=== PATIENT | male | born 1975 | race Caucasian/White ===

== ENCOUNTER 2018-06-09 17:35 | Inpatient (IN) ==
[~2018-06-09 17:35] MED LIST: 0.9 % Sodium Chloride 1,000 ML ONE; Ipratropium/Albuterol Neb 3 ML ONE; methylPREDNISolone 125 MG/2 ML VIAL ONE
--- NOTE | 2018-06-09 20:54 | Internal Med History&Physical ---
<Brett Dan - Last Filed: 06/09/18 23:00> Date of Encounter: 06/09/18 Time of Encounter: 20:53 ( ) Internal Medicine - H&P: HPI Chief complaint: SOB, cough Admitted From: Emergency Dept History of present illness: Mr. Casper is a 42 year old male who was a transfer from [place] emergency department with concern for multilobar pneumonia. Patient states that he has been having shortness of breath and cough for the last 2 weeks. He reports green sputum production. States it is worse when lying flat. He also reports smoking since the age of 6. Not on any oxygen at home. Was found to have a multilobar pneumonia on CT angiogram of the chest. Patient was given 1 L of fluids there. He was given Solu-Medrol, breathing treatments, and required 4 L of oxygen via nasal cannula. Troponin was mildly elevated at 0.05 initially. Patient had a leukocytosis of 15.8. He was given Rocephin and azithromycin. Patient denied any fevers, chest pain, abdominal pain, nausea, vomiting, lower extremity edema. Past Med Surg Social Fam HX - Past Medical History Medical history: COPD, seizures Psychiatric history: no psych history - Past Surgical History Surgical History: herniorrhaphy - Social History Smoking Status: Current every day smoker Smokeless Tobacco Status: Yes Alcohol use: none Drug use: none Internal Medicine - H&P: Meds carBAMazepine [Tegretol] 800 mg PO HS 12/11/15 [History] Albuterol Neb [AccuNeb] 1.25 mg IH 1-2XD PRN MDD 2 06/09/18 [History] Allergy/AdvReac Type Severity Reaction Status Date / Time Amoxicillin Allergy Swelling Verified 08/17/16 23:15 of Lip/Tongue/Throat ampicillin Allergy Swelling Verified 08/17/16 23:15 of Lip/Tongue/Throat Bee Pollen Allergy Swelling Verified 08/17/16 23:15 of Lip/Tongue/Throat Penicillins [PCN] Allergy Swelling Verified 08/17/16 23:15 of Lip/Tongue/Throat All Systems PM: A 10-system review of systems was performed and is negative for pertinent findings except as documented above in the HPI. - Constitutional Vitals: Temp Pulse Resp BP Pulse Ox 99.6 F 84 19 145/107 92 06/09/18 19:15 06/09/18 19:27 06/09/18 19:27 06/09/18 19:15 06/09/18 19:27 General appearance: Present: A&O X 3, pleasant, no acute distress Exam: General: Well Appearing, in no acute distress Head: autraumatic, EOMI, no conjuncitval pallor, no scleral icterus, Neck: neck soft, trachea midline Chest:: Equal chest wall rise Lungs: Mild rhonchi bilaterally, no wheezes, 4 L oxygen via nasal cannula Heart: normal heart sounds, normal rhythm, Abdomen: soft, non-tender, no rigidity, no guarding, no rebdound tenderness Extremities: No pitting edema Integumentary: Skin warm, dry, and intact Neuro: Alert Psych: normal affect, normal mood - Assessment and plan (1) Pneumonia Current Visit: Yes Status: Acute Assessment and plan: Patient with multilobar pneumonia on CT angiogram. Has received one dose of Rocephin and azithromycin. Currently was also given steroids and DuoNeb's in the emergency department. Had an elevated troponin 0.05. Repeat troponin was less than 0.03. EKG did not reveal any ischemic ST changes. Patient does not have any chest pain at this time. Flu swab was negative. Requiring oxygen via nasal cannula at 4 L to keep oxygen saturation at 90%. -DuoNeb's every 4 hours scheduled for pulmonary toilet -Continue azithromycin and Rocephin -Prednisone 40 mg daily -Titrate oxygen via nasal cannula to 92%, patient will most likely qualify for home oxygen -Patient received 325 mg of aspirin with concern for elevated troponin. We will not start any heparin at this time as suspicion for ACS is low. - Repeat troponin at 4 AM -Will obtain an echocardiogram as well -DVT prophylaxis with heparin 5000 every 8 hours - Qualifiers: Pneumonia type: due to unspecified organism Laterality: bilateral Lung location: unspecified part of lung Qualified Code(s): J18.9 - Pneumonia, unspecified organism (2) Acute respiratory failure Current Visit: Yes Status: Acute Assessment and plan: See above Qualifiers: Respiratory failure complication: hypoxia and hypercapnia Qualified Code(s): J96.01 - Acute respiratory failure with hypoxia; J96.02 - Acute resp iratory failure with hypercapnia (3) Elevated troponin I level Current Visit: Yes Status: Acute Assessment and plan: See above (4) Tobacco abuse Current Visit: Yes Status: Acute Assessment and plan: -Nicotine patches -Recommend counseling for tobacco cessation (5) COPD exacerbation Current Visit: Yes Status: Acute Assessment and plan: See above (6) DVT prophylaxis Current Visit: Yes Status: Acute Assessment and plan: See above (7) Full code status Current Visit: Yes Status: Acute - Time Spent With Patient Total time spent is greater than 50% in coordination of care (as documented) at patient's floor/unit and/or counseling patient: <Robert Israel Kym - Last Filed: 06/10/18 03:57> Date of Encounter: 06/09/18 Internal Medicine - H&P: HPI History of present illness: Mr. Casper is a 42 year old male All Systems PM: A 10-system review of systems was performed and is negative for pertinent findings except as documented above in the HPI. - Constitutional Vitals: Temp Pulse Resp BP Pulse Ox 98.3 F 88 20 160/108 94 06/10/18 03:27 06/10/18 03:27 06/10/18 03:27 06/10/18 03:27 06/10/18 03:27 Internal Med - H&P Results - Labs Labs: Cardiac Enzymes 06/09/18 Range/Units 21:29 Troponin I < 0.03 (< 0.04) ng/mL - Time Spent With Patient Total time spent is greater than 50% in coordination of care (as documented) at patient's floor/unit and/or counseling patient: - Attending Attestation I saw and evaluated the patient. I reviewed the residents note, performed my own physical examination and agree with findings and plan as documented in the residents note. Patient seen and examined on 06/09/18. Patient has multifocal pneumonia, history of seizures and hypoxia. He also has likely COPD exacerbation. Patient's INR also elevated at 1.5 the troponin of 0.05 as well. EKG did not demonstrate ischemic changes, patient denies chest pain. Upon arrival he was given nicotine patch, breathing treatments, and supplemental oxygen. We will continue his IV antibiotics, repeat labs in the morning, obtain cardiac echo in the morning as well as check an A1c. Patient's blood glucose was slightly elevated, but patient denies history of diabetes. I asked patient about family history of medical problems, he indicates that his uncle on his father's side of the family had seizures as well as his cousin, but he denies history of heart problems, diabetes and other medical problems including cancer in his mother and father side of the family. Patient states that he is feeling better since arrival.
[2018-06-09] MEDS ORDERED: Aspirin 325 MG TABLET PO ONE (21:34)
[2018-06-09] MEDS: Nicotine 14 MG PATCH.TD24 TD SCH (22:49)
[2018-06-09] MEDS: 0.9 % Sodium Chloride 1,000 ML IVC SCH (22:50)
[2018-06-09] MEDS: Ipratropium/Albuterol Neb 3 ML IH SCH (23:08)
[2018-06-09] MEDS ORDERED: Acetaminophen 325 MG TABLET PO PRN (23:37)
[2018-06-10] MEDS ORDERED: Acetaminophen 325 MG TABLET PO SCH
[2018-06-10] MEDS: carBAMazepine 200 MG TABLET PO SCH ×2 (00:27→22:10)
[2018-06-10] MEDS: Ipratropium/Albuterol Neb 3 ML IH SCH ×5 (03:43→20:45)
[2018-06-10] MEDS: *HR* Heparin 5,000 UNIT/ML VIAL SQ SCH ×3 (05:27→22:09)
[2018-06-10] MEDS ORDERED: CarBAMazepine XR (12 hr) 100 MG TAB PO SCH (06:00)
[2018-06-10 06:18] LABS: Hematocrit 47.3 % (37.5-50.1); Mean Corpuscular HGB Conc 31.7 g/dL (31.6-35.5); Mean Corpuscular Hemoglobin 33.1 pg (28.0-33.3); Mean Corpuscular Volume 104.4 fL (83.0-100.0); Mean Platelet Volume 10.7 fL (9.4-12.4); Nucleated Red Blood Cells 0.2 /100 WBC (0); Platelet Count 249 K/mcL (140-400); Red Blood Count 4.53 M/mcL (4.19-5.50)
[2018-06-10 06:27] LABS: INR 1.4; Prothrombin Time 15.7 Seconds (9.4-12.1)
[2018-06-10 06:35] LABS: BUN/Creatinine Ratio 17 (6-26); Blood Urea Nitrogen 9 mg/dL (6-20); Carbon Dioxide 36 mEq/L (23-29); Chloride 100 mEq/L (98-107); Glucose 102 mg/dL (70-105); Osmolality,Calculated 289 (280-300); Potassium 4.1 mEq/L (3.5-5.1); Sodium 140 mEq/L (136-145); eGFR For Non-African Americans > 60 (> 60)
[2018-06-10 06:37] LABS: Chol/HDL Ratio 7.2 (0-4.9)
[2018-06-10 06:43] LABS: Lymphocytes # 2.3 K/mcL (0.6-4.6); Monocytes # 0.5 K/mcL (0.0-1.3); Neutrophils # 10.1 K/mcL (1.6-8.9); Platelet Estimate Normal (Normal); Reactive Lymphocytes Present (Not Present); Smudge Cells Present (Not Present)
[2018-06-10] MEDS: 0.9 % Sodium Chloride 1,000 ML IVC SCH ×2 (07:02→16:28)
[2018-06-10] MEDS: cefTRIAXone 1,000 MG in Water for inj. (sterile) 20 ML 10 ML IVP SCH (08:00)
[2018-06-10] MEDS: predniSONE 20 MG TABLET PO SCH (08:00)
--- NOTE | 2018-06-10 09:44 | Internal Med Progress Note ---
Hospitalist Progress Note - Encounter Date of Encounter: 06/10/18 Time of Encounter: 09:27 - Subjective Interval History: Patient seen and examined this morning at bedside. Breathing improving. Denies any chest pain. Denies any nausea vomiting. Denies any abdominal pain bowel or urinary complaints. - Exam Vitals: Temp Pulse Resp BP Pulse Ox 98.3 F 89 20 142/107 90 06/10/18 07:26 06/10/18 07:26 06/10/18 07:26 06/10/18 07:26 06/10/18 07:26 Exam: General: In no acute distress. Conversant. Obese. Respiratory exam: Bilateral rhonchi and rales. no accessory muscle use Cardiovascular exam: RRR, +S1, +S2. no murmur, gallop, rubs. GI/Abdominal exam: Non-tender, Non-distended, normal bowel sounds, soft, no peritoneal signs. Extremities exam: full ROM, no pedal edema, warm, pulses palpable in b/l lower extremities. no calf tenderness Neurological exam: CN II-XII intact, AO X3, no focal deficits. no pronater drift, facial droop, speech deficit Skin exam: skin pigmentation on back. - Summary of Assessment and Plan Summary of Assessment and Plan: Multilobar Pneumonia - On CTA. - c/w Rocephin and azithromycin. duonebs - Flu swab was negative. Obtain respiratory infectious panel, urine legionella and streptococcal antigen - c/w supplemental oxgyen. Acute respiratory failure - likely related to pneumonia on baseline COPD - c/w supplemental oxygen Elevated troponin I level - Remain flat. 0.05> less than 0.03 - EKG without ischemic changes - denies chest pain. - f/u ECHO - s/p aspirin COPD exacerbation - c/w prednisone, ceftrixone, azithromycin and duonebs Elevated glucose - f/u A1c Tobacco abuse - c/w Nicotine patches Seizure history - c/w home carbamezepine DVT prophylaxis - on heparin - Time Spent with Patient Total time spent is greater than 50% in coordination of care (as documented) at patient's floor/unit and/or counseling patient: Internal Medicine: Result - Labs CBC & Chem 7: 06/10/18 05:39 06/10/18 05:39 Labs: Short CBC 06/10/18 Range/Units 05:39 WBC 13.0 H (4.3-11.1) K/mcL Hgb 15.0 (12.9-16.9) g/dL Hct 47.3 (37.5-50.1) % Plt Count 249 (140-400) K/mcL Neutrophils # 10.1 H (1.6-8.9) K/mcL BMP 06/10/18 05:39 Sodium 140 Potassium 4.1 Chloride 100 Carbon Dioxide 36 H BUN 9 Creatinine 0.53 L Glucose 102 Calcium 9.0 Cardiac Enzymes 06/09/18 06/10/18 Range/Units 21:29 05:39 Troponin I < 0.03 < 0.03 (< 0.04) ng/mL - ABG Interpretation ABG results: PT/INR, D-dimer PT 15.7 Seconds (9.4-12.1) H 06/10/18 05:39 Consult Discharge Plan - Plan Referrals: NONE,PCP [Primary Care Provider] -
[2018-06-10 11:50] LABS: Adenovirus Not Detected (Not Detect); Bordetella Pertussis Not Detected (Not Detect); Chlamydophila pneumoniae Not Detected (Not Detect); Coronavirus 229E Not Detected (Not Detect); Coronavirus HKU1 Not Detected (Not Detect); Coronavirus NL63 Not Detected (Not Detect); Coronavirus OC43 Not Detected (Not Detect); Human Metapneumovirus Not Detected (Not Detect); Human Rhinovirus/Enterovirus DETECTED (Not Detect); Influenza A Subtype 2009 H1 Not Detected (Not Detect); Influenza A Untypeable Not Detected (Not Detect); Influenza B Not Detected (Not Detect); Mycoplasma pneumoniae Not Detected (Not Detect); Parainfluenza Virus 1 Not Detected (Not Detect); Parainfluenza Virus 2 Not Detected (Not Detect); Parainfluenza Virus 3 Not Detected (Not Detect); Parainfluenza Virus 4 Not Detected (Not Detect); Respiratory Syncytial Virus Not Detected (Not Detect)
[2018-06-10 12:56] LABS: Estimated Average Glucose 169 mg/dl; Hemoglobin A1C 7.5 %
[2018-06-10] MEDS ORDERED: Perflutren Lipid Microsphere 1.3 ML in 0.9 % Sodium Chloride 8.7 ML IVP ONE (13:34)
[2018-06-10] MEDS ORDERED: Azithromycin 500 MG in D5% in Water 250 ML IVPB SCH (16:00)
[2018-06-10] MEDS: Nicotine 14 MG PATCH.TD24 TD SCH (22:09)
[2018-06-11] MEDS: Ipratropium/Albuterol Neb 3 ML IH SCH ×7 (00:50→23:57)
[2018-06-11] MEDS: 0.9 % Sodium Chloride 1,000 ML IVC SCH ×2 (01:07→09:13)
[2018-06-11] MEDS: *HR* Heparin 5,000 UNIT/ML VIAL SQ SCH ×3 (05:54→19:58)
[2018-06-11 08:03] LABS: Sodium 141 mEq/L (136-145)
[2018-06-11 08:04] LABS: BUN/Creatinine Ratio 16 (6-26); Blood Urea Nitrogen 11 mg/dL (6-20); Calcium 8.7 mg/dL (8.6-10.3); Carbon Dioxide 35 mEq/L (23-29); Chloride 101 mEq/L (98-107); Glucose 102 mg/dL (70-105); Osmolality,Calculated 292 (280-300); Potassium 4.1 mEq/L (3.5-5.1); eGFR For Non-African Americans > 60 (> 60)
[2018-06-11 08:22] LABS: Basophils % 0.4 %; Eosinophils # 0.3 K/mcL (0.0-0.6); Eosinophils % 2.5 %; Hematocrit 47.9 % (37.5-50.1); Hemoglobin 14.7 g/dL (12.9-16.9); Immature Granulocytes % 1.2 % (0-4); Lymphocytes # 2.7 K/mcL (0.6-4.6); Lymphocytes % 24.1 %; Mean Corpuscular HGB Conc 30.7 g/dL (31.6-35.5); Mean Corpuscular Hemoglobin 33.1 pg (28.0-33.3); Mean Corpuscular Volume 107.9 fL (83.0-100.0); Mean Platelet Volume 11.1 fL (9.4-12.4); Monocytes # 0.6 K/mcL (0.0-1.3); Monocytes % 5.1 %; Neutrophils # 7.5 K/mcL (1.6-8.9); Platelet Count 251 K/mcL (140-400); Red Blood Count 4.44 M/mcL (4.19-5.50); Red Cell Distribution Width 12.8 % (11.5-14.5); Segmented Neutrophils % 66.7 %
--- NOTE | 2018-06-11 08:48 | Internal Med Progress Note ---
Hospitalist Progress Note - Encounter Date of Encounter: 06/11/18 Time of Encounter: 08:47 - Subjective Interval History: Patient seen and examined this morning at bedside. No acute overnight events. Breathing slightly improved. Complains of difficulty sleeping tablets being going on for a while urine before admissions. Denies any fevers chills nausea vomiting urinary or bowel complaints. - Exam Vitals: Temp Pulse Resp BP Pulse Ox 98.1 F 58 18 138/104 95 06/11/18 07:34 06/11/18 07:34 06/11/18 07:34 06/11/18 07:34 06/11/18 07:34 Exam: General: In no acute distress. Conversant. Respiratory exam: Bilateral rhonchi and rales. aeration improved. no accessory muscle use Cardiovascular exam: RRR, +S1, +S2. no murmur, gallop, rubs. GI/Abdominal exam: Non-tender, Non-distended, normal bowel sounds, soft, no peritoneal signs. Extremities exam: full ROM, no pedal edema, warm, pulses palpable in b/l lower extremities. no calf tenderness Neurological exam: CN II-XII intact, AO X3, no focal deficits. no pronater drift, facial droop, speech deficit Skin exam: skin pigmentation on back. - Summary of Assessment and Plan Summary of Assessment and Plan: Multilobar Pneumonia - On CTA. - Urine antigen positive for streptococcus. entero/Rhino virus positive. - c/w Rocephin and duonebs - urine legionella negative. azithromycin stopped. - c/w supplemental oxgyen. Acute respiratory failure - likely related to pneumonia on baseline COPD - c/w supplemental oxygen Elevated troponin I level - Remain flat. 0.05> less than 0.03 - EKG without ischemic changes - denies chest pain. - ECHO with EF 55-60%, no wall motion abnormality COPD exacerbation - c/w prednisone, ceftrixone and duonebs Elevated glucose - A1c at 7.5 - Will start on metformin on discharge. Tobacco abuse - c/w Nicotine patches Seizure history - c/w home carbamezepine DVT prophylaxis - on heparin Can be transferred out to regular floor. get o2 qualification. - Time Spent with Patient Total time spent is greater than 50% in coordination of care (as documented) at patient's floor/unit and/or counseling patient: Internal Medicine: Result - Labs CBC & Chem 7: 06/11/18 07:16 06/11/18 07:16 Labs: Short CBC 06/11/18 Range/Units 07:16 WBC 11.2 H (4.3-11.1) K/mcL Hgb 14.7 (12.9-16.9) g/dL Hct 47.9 (37.5-50.1) % Plt Count 251 (140-400) K/mcL BMP 06/11/18 07:16 Sodium 141 Potassium 4.1 Chloride 101 Carbon Dioxide 35 H BUN 11 Creatinine 0.68 L Glucose 102 Calcium 8.7 - ABG Interpretation ABG results: PT/INR, D-dimer PT 15.7 Seconds (9.4-12.1) H 06/10/18 05:39 - Impressions Impressions Echocardiogram 06/09/18 21:30 Impressions: Technically sub-optimal. LVEF grossly 55-60%. Mild left ventricular diastolic dysfunction. Grossly normal right ventricular structure and function. No significant valvular dysfunction. Unable to estimate RVSP due to lack of TR jet. Left Ventricular Wall Motion: Rest Echo Findings All wall segments showed normal motion. Findings: Study Quality * Technically sub-optimal due to poor echocardiographic windows. ECG Findings * Sinus rhythm with BBB. Left Ventricle * LVEF 55-60%. * Normal LV chamber size, wall thickness and systolic function. * Mild left ventricular diastolic dysfunction. * Atypical septal motion consistent with bundle branch block. Right Ventricle * RV not well visualized, grossly normal right ventricular structure and function. Left Atrium * Normal left atrial size. Right Atrium * RA not well visualized, grossly normal right atrial size. Interatrial Septum * Interatrial septum not well evaluated. Aortic Valve * Aortic valve not well visualized. * No aortic stenosis. * No aortic regurgitation. Mitral Valve * Mitral valve not well visualized. * No mitral stenosis. * No mitral regurgitation. Tricuspid Valve * Tricuspid valve not well visualized. * No tricuspid stenosis. * Trace tricuspid regurgitation. * Unable to estimate RVSP due to lack of TR jet. Pulmonic Valve * Pulmonic valve is not well visualized. * No pulmonic stenosis. * No pulmonic regurgitation. Aorta * Normally sized aortic root. Pericardium * The pericardium appears normal. IVC * The IVC is not well evaluated. Consult Discharge Plan - Plan Referrals: NONE,PCP [Primary Care Provider] -
[2018-06-11 08:50] LABS: Platelet Estimate Normal (Normal)
[2018-06-11] MEDS: cefTRIAXone 1,000 MG in Water for inj. (sterile) 20 ML 10 ML IVP SCH (09:13)
[2018-06-11] MEDS: predniSONE 20 MG TABLET PO SCH (09:13)
[2018-06-11] MEDS: carBAMazepine 200 MG TABLET PO SCH (19:43)
[2018-06-11] MEDS: Nicotine 14 MG PATCH.TD24 TD SCH (19:44)
[2018-06-12] MEDS: Ipratropium/Albuterol Neb 3 ML IH SCH ×5 (03:49→20:20)
[2018-06-12 05:16] LABS: Basophils % 0.4 %; Eosinophils # 0.3 K/mcL (0.0-0.6); Eosinophils % 2.7 %; Hematocrit 47.6 % (37.5-50.1); Immature Granulocytes % 1.5 % (0-4); Lymphocytes # 2.6 K/mcL (0.6-4.6); Lymphocytes % 26.4 %; Mean Corpuscular HGB Conc 31.5 g/dL (31.6-35.5); Mean Corpuscular Hemoglobin 33.2 pg (28.0-33.3); Mean Corpuscular Volume 105.3 fL (83.0-100.0); Monocytes # 0.5 K/mcL (0.0-1.3); Monocytes % 4.6 %; Neutrophils # 6.3 K/mcL (1.6-8.9); Platelet Count 276 K/mcL (140-400); Red Blood Count 4.52 M/mcL (4.19-5.50); Red Cell Distribution Width 12.5 % (11.5-14.5); Segmented Neutrophils % 64.4 %
[2018-06-12 05:34] LABS: BUN/Creatinine Ratio 19 (6-26); Blood Urea Nitrogen 11 mg/dL (6-20); Calcium 8.7 mg/dL (8.6-10.3); Carbon Dioxide 32 mEq/L (23-29); Chloride 103 mEq/L (98-107); Glucose 101 mg/dL (70-105); Osmolality,Calculated 286 (280-300); Potassium 4.2 mEq/L (3.5-5.1); Sodium 138 mEq/L (136-145); eGFR For Non-African Americans > 60 (> 60)
[2018-06-12] MEDS: *HR* Heparin 5,000 UNIT/ML VIAL SQ SCH ×3 (05:58→22:08)
[2018-06-12] MEDS: cefTRIAXone 1,000 MG in Water for inj. (sterile) 20 ML 10 ML IVP SCH (07:51)
[2018-06-12] MEDS: predniSONE 20 MG TABLET PO SCH (07:51)
[2018-06-12] MEDS: Lisinopril 20 MG TABLET PO SCH (08:54)
--- NOTE | 2018-06-12 09:34 | Event Note ---
Date of Encounter: 06/12/18 Time of Encounter: 09:29 Patient was seen and examined. I agree with the progress note as written by the resident physician. Patient remains on about 4 L O2. Not usually on home O2. Feeling better. Admitted with mulitlobar PNA, COPD exacerbation. Urine antigen + for strep. Resp panel + for entero/rhino virus. GEN: NAD CVS: RRR. S1, S2, No m/r/g RESP: Scattered rhonchi ABD: Soft, NT, ND, +BS EXT: No edema. 2+ DP. No rashes NEURO: Nonfocal Continue IV ceftriaxone. Continue oral prednisone as this today and taper at discharge Continue nebs Try to wean oxygen off today. Possibly O2 evaluation tomorrow Continue rest of home medications. Heparin subcutaneous
--- NOTE | 2018-06-12 16:10 | Internal Med Progress Note ---
Hospitalist Progress Note - Encounter Date of Encounter: 06/12/18 Time of Encounter: 10:14 - Subjective Interval History: Patient sitting comfortably at the edge of the bed after finishing breathing treatment. States that he is feeling much better today. Continues to have mild cough but much improved. Some sputum production with yellowish mucus, however also improved. Denies shortness of breath, chest pain, lightheadedness, dizziness, nausea, vomiting, fevers, or chills. - Exam Vitals: Temp Pulse Resp BP Pulse Ox 97.9 F 66 18 153/81 90 06/12/18 11:37 06/12/18 11:37 06/12/18 11:37 06/12/18 11:37 06/12/18 13:34 Exam: General: In no acute distress. Head: Normocephalic, atraumatic Eyes: EOMI, nonicteric, conjunctiva clear Mouth: Mucosa moist Respiratory exam: Bilateral rhonchi and rales. No respiratory distress Cardiovascular exam: RRR, +S1, +S2. no murmur GI/Abdominal exam: Soft,, Non-distended, normal bowel sounds, no hepatosplenomegaly Extremities exam: No edema, cyanosis, joint swelling or tenderness Neurological exam: AO X3, no focal deficits. no pronater drift, facial droop, speech deficit Skin exam: Warm, dry, intact, no lesions - Assessment and Plan (1) Acute and chronic respiratory failure Current Visit: Yes Status: Acute Assessment and Plan: Likely secondary to multilobar pneumonia and COPD Currently on 3 L supplemental oxygen, not on oxygen at home Continue Rocephin Continue duo nebs Continue oral steroids Continue supplemental O2, wean as tolerated (2) Community acquired pneumonia Current Visit: Yes Status: Acute Assessment and Plan: As seen CTA at [facility] Urine antigen positive for Streptococcus. Enterra/rhinovirus positive Urine Legionella negative Continue Rocephin, transition to oral antibiotic for total 10 day course on discharge Continue duo nebs Continue supplemental oxygen, wean as tolerated (3) COPD exacerbation Current Visit: Yes Status: Acute Assessment and Plan: Likely secondary to multilobar pneumonia Continue duo nebs Continue antibiotics Continue oral steroids, will taper on discharge Continue supplemental oxygen, wean as tolerated. If unable to wean will administer walk test to determine needs for home oxygen. (4) Diabetes mellitus Current Visit: Yes Status: Acute Assessment and Plan: Hemoglobin A1c of 7.5 Will need follow-up with PCP, metformin upon discharge (5) Elevated troponin Current Visit: Yes Status: Acute Assessment and Plan: Troponin 0.05 on presentation, repeat 0.03 Adynamic elevation, low concern for cardiac origin EKG without ischemic changes No chest pain Echo with EF 55-60%, no wall motion abnormality (6) History of seizure Current Visit: Yes Status: Acute Assessment and Plan: Stable Continue home meds (7) Tobacco abuse Current Visit: Yes Status: Acute DVT Prophylaxis: SQ heparin - Time Spent with Patient Total time spent is greater than 50% in coordination of care (as documented) at patient's floor/unit and/or counseling patient: less than 15 minutes Plan of Care Discussed with: patient Internal Medicine: Result - Labs CBC & Chem 7: 06/12/18 04:18 06/12/18 04:18 Labs: Short CBC 06/12/18 Range/Units 04:18 WBC 9.8 (4.3-11.1) K/mcL Hgb 15.0 (12.9-16.9) g/dL Hct 47.6 (37.5-50.1) % Plt Count 276 (140-400) K/mcL Neutrophils # 6.3 (1.6-8.9) K/mcL BMP 06/12/18 04:18 Sodium 138 Potassium 4.2 Chloride 103 Carbon Dioxide 32 H BUN 11 Creatinine 0.57 L Glucose 101 Calcium 8.7 - ABG Interpretation ABG results: PT/INR, D-dimer PT 15.7 Seconds (9.4-12.1) H 06/10/18 05:39 Consult Discharge Plan - Plan Referrals: NONE,PCP [Primary Care Provider] - Tom Matthew DO [Non-Partnered Physician] - 06/19/18 9:00 am () (1) Acute and chronic respiratory failure Qualifiers: Respiratory failure complication: hypoxia Qualified Code(s): J96.21 - Acute and chronic respiratory failure with hypoxia (2) Community acquired pneumonia Qualifiers: Lung location: unspecified part of lung (4) Diabetes mellitus Qualifiers: Diabetes mellitus type: other specified (including CHRISSY) Diabetes mellitus mcfp insulin use: without terminal system operator use Diabetes mellitus complication status: with unspecified complications Qualified Code(s): E13.8 - Other s pecified diabetes mellitus with unspecified complications
[2018-06-12] MEDS: carBAMazepine 200 MG TABLET PO SCH (20:32)
[2018-06-12] MEDS: Nicotine 14 MG PATCH.TD24 TD SCH (20:33)
[2018-06-13] MEDS: Ipratropium/Albuterol Neb 3 ML IH SCH ×7 (00:27→23:44)
[2018-06-13 05:42] LABS: Basophils % 0.5 %; Eosinophils # 0.3 K/mcL (0.0-0.6); Eosinophils % 3.1 %; Hematocrit 49.3 % (37.5-50.1); Hemoglobin 15.1 g/dL (12.9-16.9); Immature Granulocytes % 1.1 % (0-4); Lymphocytes # 2.6 K/mcL (0.6-4.6); Mean Corpuscular HGB Conc 30.6 g/dL (31.6-35.5); Mean Corpuscular Hemoglobin 32.4 pg (28.0-33.3); Mean Corpuscular Volume 105.8 fL (83.0-100.0); Mean Platelet Volume 10.4 fL (9.4-12.4); Monocytes # 0.4 K/mcL (0.0-1.3); Monocytes % 4.5 %; Platelet Count 280 K/mcL (140-400); Red Blood Count 4.66 M/mcL (4.19-5.50); Red Cell Distribution Width 12.7 % (11.5-14.5); Segmented Neutrophils % 59.8 %
[2018-06-13 05:55] LABS: BUN/Creatinine Ratio 21 (6-26); Blood Urea Nitrogen 13 mg/dL (6-20); Calcium 9.1 mg/dL (8.6-10.3); Carbon Dioxide 39 mEq/L (23-29); Chloride 98 mEq/L (98-107); Glucose 110 mg/dL (70-105); Osmolality,Calculated 297 (280-300); Potassium 4.3 mEq/L (3.5-5.1); Sodium 143 mEq/L (136-145); eGFR For Non-African Americans > 60 (> 60)
[2018-06-13] MEDS: *HR* Heparin 5,000 UNIT/ML VIAL SQ SCH ×3 (06:15→21:41)
--- NOTE | 2018-06-13 08:57 | Internal Med Progress Note ---
<Roger Moralez - Last Filed: 06/13/18 13:38> Hospitalist Progress Note - Encounter Date of Encounter: 06/13/18 Time of Encounter: 08:57 - Subjective Interval History: Patient sleeping in bed upon my arrival. He continues to have cough, shortness of breath. He continues to require oxygen supplementation. He denies chest pain, headache, abdominal pain. He is able to ambulate independently. He is tolerating his diet. - Exam Vitals: Temp Pulse Resp BP Pulse Ox 97.5 F L 76 18 173/103 91 06/13/18 07:55 06/13/18 07:55 06/13/18 07:55 06/13/18 07:55 06/13/18 07:55 Exam: General: pleasant, without distress Cardiovascualr: Regular rate and rhythm with no murmur, absent gallops or rubs, absent pedal edema, radial pulses 2 out of 4 Lungs: Bilateral lower lobe rhonchi, not enlarged. Distress Abdomen: Soft nontender, nondistended positive bowel sounds, absent hepatomegaly Skin: warm and dry, absent rash, absent open wounds and nodules MSK: absent clubbing, cyanosis, joints without swelling Neuro: Alert oriented 3 Psych: good insight and judgment, - Assessment and Plan (1) Acute and chronic respiratory failure Current Visit: Yes Status: Acute Assessment and Plan: Patient has acute on chronic respiratory failure secondary to viral pneumonia as well as streptococcal pneumonia Patient continues to require oxygen supplementation and his lung exam is abnormal with bilateral rhonchi We will continue prednisone and scheduled DuoNeb's. We will add guaifenesin to the regimen (2) Community acquired pneumonia Current Visit: Yes Status: Acute Assessment and Plan: Patient has multifocal pneumonia as seen on CT chest secondary to staphylococcal pneumonia He is on ceftriaxone day 4 for total of 10 days. Sputum culture is negative. Urine antigen is positive for streptococcal pneumonia antigen (3) COPD exacerbation Current Visit: Yes Status: Acute Assessment and Plan: Plan as above. (4) Diabetes mellitus Current Visit: Yes Status: Acute Assessment and Plan: Patient has newly found diabetes mellitus with a hemoglobin A1c of 7.5 Patient's glucose in the hospital have been stable and he is not requiring sliding scale insulin. We will continue diabetic diet. We will start metformin on discharge (5) Elevated troponin Current Visit: Yes Status: Acute Assessment and Plan: Patient had elevated troponin of 0.05 on presentation and repeat was 0.03 EKG which did not show any ischemic changes Echocardiogram showed EF of 55-60% without any wall motion abnormalities This is likely demand ischemia secondary to pneumonia No further testing needed. (6) History of seizure Current Visit: Yes Status: Acute Assessment and Plan: Continue carbamazepine Stable. (7) Tobacco abuse Current Visit: Yes Status: Acute Assessment and Plan: Patient educated on smoking cessation. DVT Prophylaxis: SQ heparin - Time Spent with Patient Total time spent is greater than 50% in coordination of care (as documented) at patient's floor/unit and/or counseling patient: Internal Medicine: Result - Labs CBC & Chem 7: 06/13/18 05:01 06/13/18 05:01 Labs: Short CBC 06/13/18 Range/Units 05:01 WBC 8.3 (4.3-11.1) K/mcL Hgb 15.1 (12.9-16.9) g/dL Hct 49.3 (37.5-50.1) % Plt Count 280 (140-400) K/mcL Neutrophils # 5.0 (1.6-8.9) K/mcL BMP 06/13/18 05:01 Sodium 143 Potassium 4.3 Chloride 98 Carbon Dioxide 39 H BUN 13 Creatinine 0.63 L Glucose 110 H Calcium 9.1 - ABG Interpretation ABG results: PT/INR, D-dimer PT 15.7 Seconds (9.4-12.1) H 06/10/18 05:39 Consult Discharge Plan - Plan Referrals: NONE,PCP [Primary Care Provider] - Tom Matthew DO [Non-Partnered Physician] - 06/19/18 9:00 am () <Emmett Obrien - Last Filed: 06/13/18 18:23> Hospitalist Progress Note - Encounter Date of Encounter: 06/13/18 - Exam Vitals: Temp Pulse Resp BP Pulse Ox 98 F 84 18 149/88 93 06/13/18 16:25 06/13/18 16:25 06/13/18 16:25 06/13/18 16:25 06/13/18 16:25 - Time Spent with Patient Total time spent is greater than 50% in coordination of care (as documented) at patient's floor/unit and/or counseling patient: Internal Medicine: Result - Labs CBC & Chem 7: 06/13/18 05:01 06/13/18 05:01 Labs: Short CBC 06/13/18 Range/Units 05:01 WBC 8.3 (4.3-11.1) K/mcL Hgb 15.1 (12.9-16.9) g/dL Hct 49.3 (37.5-50.1) % Plt Count 280 (140-400) K/mcL Neutrophils # 5.0 (1.6-8.9) K/mcL BMP 06/13/18 05:01 Sodium 143 Potassium 4.3 Chloride 98 Carbon Dioxide 39 H BUN 13 Creatinine 0.63 L Glucose 110 H Calcium 9.1 - ABG Interpretation ABG results: PT/INR, D-dimer PT 15.7 Seconds (9.4-12.1) H 06/10/18 05:39 - Attending Attestation I examined this patient and my medical decision-making was reviewed with the Resident Physician. I agree with the documented findings, disposition and treatment plan as described except to the extent set forth below. <Roger Moralez - Last Filed: 06/13/18 13:38> (1) Acute and chronic respiratory failure Qualifiers: Respiratory failure complication: hypoxia Qualified Code(s): J96.21 - Acute and chronic respiratory failure with hypoxia (2) Community acquired pneumonia Qualifiers: Lung location: unspecified part of lung (4) Diabetes mellitus Qualifiers: Diabetes mellitus type: other specified (including CHRISSY) Diabetes mellitus usp insulin use: without continuous churn buttermaker use Diabetes mellitus complication status: with unspecified complications Qualified Code(s): E13.8 - Other specified diabetes mellitus with unspecified complications
[2018-06-13] MEDS: cefTRIAXone 1,000 MG in Water for inj. (sterile) 20 ML 10 ML IVP SCH (09:18)
[2018-06-13] MEDS: predniSONE 20 MG TABLET PO SCH (09:18)
[2018-06-13] MEDS: Lisinopril 20 MG TABLET PO SCH (09:18)
[2018-06-13] MEDS: carBAMazepine 200 MG TABLET PO SCH (21:38)
[2018-06-13] MEDS: Nicotine 14 MG PATCH.TD24 TD SCH (21:43)
[2018-06-14] MEDS: Ipratropium/Albuterol Neb 3 ML IH SCH ×3 (03:59→11:31)
[2018-06-14 04:37] LABS: Basophils # 0.1 K/mcL (0.0-0.2); Basophils % 0.6 %; Eosinophils # 0.2 K/mcL (0.0-0.6); Eosinophils % 2.3 %; Hematocrit 49.2 % (37.5-50.1); Hemoglobin 15.9 g/dL (12.9-16.9); Immature Granulocytes % 1.1 % (0-4); Lymphocytes # 2.5 K/mcL (0.6-4.6); Mean Corpuscular HGB Conc 32.3 g/dL (31.6-35.5); Mean Corpuscular Hemoglobin 33.4 pg (28.0-33.3); Mean Corpuscular Volume 103.4 fL (83.0-100.0); Monocytes # 0.4 K/mcL (0.0-1.3); Monocytes % 4.4 %; Neutrophils # 6.4 K/mcL (1.6-8.9); Platelet Count 250 K/mcL (140-400); Red Blood Count 4.76 M/mcL (4.19-5.50); Red Cell Distribution Width 12.5 % (11.5-14.5); Segmented Neutrophils % 65.6 %
[2018-06-14 04:51] LABS: BUN/Creatinine Ratio 23 (6-26); Blood Urea Nitrogen 12 mg/dL (6-20); Calcium 8.7 mg/dL (8.6-10.3); Carbon Dioxide 33 mEq/L (23-29); Chloride 101 mEq/L (98-107); Glucose 120 mg/dL (70-105); Osmolality,Calculated 285 (280-300); Potassium 4.3 mEq/L (3.5-5.1); Sodium 137 mEq/L (136-145); eGFR For Non-African Americans > 60 (> 60)
[2018-06-14] MEDS: *HR* Heparin 5,000 UNIT/ML VIAL SQ SCH (05:50)
[2018-06-14] MEDS: predniSONE 20 MG TABLET PO SCH (07:27)
[2018-06-14] MEDS: Lisinopril 20 MG TABLET PO SCH (07:27)
[2018-06-14] MEDS: cefTRIAXone 1,000 MG in Water for inj. (sterile) 20 ML 10 ML IVP SCH (07:28)
[2018-06-14 08:10] VITALS: BP 148/84
--- NOTE | 2018-06-14 08:40 | Discharge Summary ---
<Roger Moralez - Last Filed: 06/14/18 08:38> - NOTES TO OUTPATIENT PROVIDER Notes to Outpatient Provider: Patient admitted for enterovirus pneumonia as well as streptococcal pneumonia. He will need follow-up with pulmonology and PFT outpatient. Patient qualified for 2 L oxygen and BiPAP overnight. Patient will be sent home on 5 additional doses of levaquin, prednisone taper, Symbicort inhaler. Patient was also diagnosed with diabetes mellitus. He will be started on metformin and will need to follow-up with PCP. Orders not resulted at time of discharge: Pending orders 06/10/18 09:47 Culture,Sputum with Gram Stain [RM] Stat Date of Encounter: 06/14/18 Time of Encounter: 08:38 - Discharge Diagnosis (1) Acute and chronic respiratory failure Priority: Primary Status: Resolved Qualifiers: Respiratory failure complication: hypoxia Qualified Code(s): J96.21 - Acute and chronic respiratory failure with hypoxia (2) Community acquired pneumonia Priority: Secondary Status: Acute Qualifiers: Laterality: unspecified laterality Qualified Code(s): J18.9 - Pneumonia, unspecified organism (3) COPD exacerbation Priority: Secondary Status: Resolved (4) Diabetes mellitus Priority: Secondary Status: Acute Qualifiers: Diabetes mellitus type: other specified (including CHRISSY) Diabetes mellitus moth exterminator insulin use: without moth exterminator use Diabetes mellitus complication status: with unspecified complications Qualified Code(s): E13.8 - Other specified diabetes mellitus with unspecified complications (5) Elevated troponin Priority: Secondary Status: Acute (6) History of seizure Priority: Secondary Status: Chronic (7) Tobacco abuse Priority: Secondary Status: Acute Hospital course: Mr. Casper is a 42 year old male presented with chief complaint of shortness of breath and was found to have rhinoviral pneumonia as well as streptococcal pneumonia. CTA chest scan showed multilobar pneumonia and was negative for PE. Patient was started on ceftriaxone, scheduled DuoNeb's, steroids. Patient also had elevated troponin initially is 0.05 with repeat 0.03. Echocardiogram revealed LVEF of 55-60% with mild left ventricular diastolic dysfunction. EKG was negative for ST elevation or depressions. Patient shortness of breath improved. He did qualify for 2 L oxygen and overnight BiPAP. Patient's hemoglobin A1c came back at 7.5 and he was discharged on metformin. Patient was also given new prescription for Symbicort. He will need to follow-up with p ulmonology and get formal evaluation for COPD with PFTs. This morning patient is ambulating independently is tolerating his diet. Discharge discussed with: patient - Time Spent with Patient Total time spent providing and/or coordinating discharge services: - Discharge Medications Prescriptions: New Budesonide/Formoterol 160/4.5 [Symbicort 160/4.5] 2 puff IH BIDR #1 hfa.aer.ad levoFLOXacin [Levaquin] 750 mg PO DAILY #5 tablet metFORMIN [Glucophage] 500 mg PO 0800 #30 tablet predniSONE [PredniSONE] 10 mg PO TAPER #10 tablet Continue Pravastatin Sodium [Pravachol] 80 mg PO HS Nicotine Patch [Nicoderm] 1 patch TP DAILY Lisinopril [Zestril] 20 mg PO DAILY Albuterol Sulfate [Albuterol Inhaler] 2 puff IH Q4H PRN PRN Reason: Shortness Of Breath Albuterol Neb [Proventil Neb] 2.5 mg IH TID PRN PRN Reason: Shortness Of Breath carBAMazepine [Tegretol] 800 mg PO HS Home Medications: carBAMazepine [Tegretol] 800 mg PO HS 12/11/15 [History] Albuterol Neb [Proventil Neb] 2.5 mg IH TID PRN 06/11/18 [History] Albuterol Sulfate [Albuterol Inhaler] 2 puff IH Q4H PRN 06/11/18 [History] Lisinopril [Zestril] 20 mg PO DAILY 06/11/18 [History] Nicotine Patch [Nicoderm] 1 patch TP DAILY 06/11/18 [History] Pravastatin Sodium [Pravachol] 80 mg PO HS 06/11/18 [History] Budesonide/Formoterol 160/4.5 [Symbicort 160/4.5] 2 puff IH BIDR #1 hfa.aer.ad 06/14/18 [Rx] levoFLOXacin [Levaquin] 750 mg PO DAILY #5 tablet 06/14/18 [Rx] metFORMIN [Glucophage] 500 mg PO 0800 #30 tablet 06/14/18 [Rx] predniSONE [PredniSONE] 10 mg PO TAPER #10 tablet 06/14/18 [Rx] Allergies/Adverse Reactions: Allergy/AdvReac Type Severity Reaction Status Date / Time Amoxicillin Allergy Swelling Verified 08/17/16 23:15 of Lip/Tongue/Throat ampicillin Allergy Swelling Verified 08/17/16 23:15 of Lip/Tongue/Throat Bee Pollen Allergy Swelling Verified 08/17/16 23:15 of Lip/Tongue/Throat Penicillins [PCN] Allergy Swelling Verified 08/17/16 23:15 of Lip/Tongue/Throat Date of admission: 06/12/18 20:53 Primary care physician: PCP NONE Consults: 06/11/18 08:23 Consult to Nurse Navigator [CONS] Routine Comment: COPD Discharging clinician: Roger Moralez Anticipated date of discharge: 06/14/18 - Constitutional Vitals: Temp Pulse Resp BP Pulse Ox 98.5 F 71 18 148/84 91 06/14/18 08:09 06/14/18 08:09 06/14/18 08:09 06/14/18 08:09 06/14/18 08:09 General appearance: Present: A&O X 3, pleasant, no acute distress Exam: General: pleasant, without distress Cardiovascualr: Regular rate and rhythm with no murmur, absent gallops or rubs, absent pedal edema, radial pulses 2 out of 4 Lungs: Diminished lung sounds, otherwise clear Abdomen: Soft nontender, nondistended positive bowel sounds, absent hepatomegaly Skin: warm and dry, absent rash, absent open wounds and nodules MSK: absent clubbing, cyanosis, joints without swelling Neuro: Alert oriented 3 Psych: good insight and judgment, - Patient Status Disposition: Home, Self-Care Functional capacity at discharge: independent ambulation Overall status at discharge: patient is progressing back to baseline - Discharge Instructions Instructions: Prednisone (By mouth), Metformin (By mouth), Levofloxacin (By mouth) Follow Up With: Ariel Morales MD [Partnered Physician] - (hospital follow up. New patient. needs formal COPD evaluation with PFTs. Web Referral sent, however if you do not here from the office please have your PCP send a referal) Tom Matthew DO [Non-Partnered Physician] - 06/19/18 9:00 am () - Diet and Activity Activity: wear oxygen at all times (2 L), other (Wear BiPAP at night) Diet: diabetic diet, low fat, low cholesterol, low salt diet <Emmett Obrien - Last Filed: 06/14/18 17:08> Orders not resulted at time of discharge: Pending orders 06/10/18 09:47 Culture,Sputum with Gram Stain [RM] Stat Date of Encounter: 06/14/18 Hospital course: Mr. Casper is a 42 year old male - Time Spent with Patient Total time spent providing and/or coordinating discharge services: Date of admission: 06/12/18 20:53 Primary care physician: PCP NONE Consults: 06/11/18 08:23 Consult to Nurse Navigator [CONS] Routine Comment: COPD - Constitutional Vitals: Temp Pulse Resp BP Pulse Ox 98.5 F 71 18 148/84 91 06/14/18 08:09 06/14/18 08:09 06/14/18 11:32 06/14/18 08:09 06/14/18 11:32 - Attending Attestation I examined this patient and my medical decision-making was reviewed with the Resident Physician. I agree with the documented findings, disposition and treatment plan as described except to the extent set forth below. Of note, patient may also benefit from cardiac stress testing, though likely elevated troponin was from acute illness.
== END 2018-06-14 12:54 | disposition home or self-care (01) | DRG 139 ==
LOC: 2NNU 19:02 → SUATTDRO 19:02 → INTOOBSV 19:02 → 2ANU 06-11 18:02 → SUATTDRO 06-12 20:53
PROVIDERS: ADMIT Internal Medicine; ATTEND Student in an Organized Health Care Education/Training Program

== ENCOUNTER 2021-03-28 22:50 | Inpatient (IN) ==
[2021-03-28] MEDS ORDERED: Isovue-370 500 ML BOTTLE IVP ONE (22:53)
[2021-03-28] MEDS ORDERED: Ipratropium/Albuterol Neb 3 ML ONE (22:55)
[2021-03-28] MEDS ORDERED: methylPREDNISolone 125 MG/2 ML VIAL IVP ONE (23:04)
[2021-03-28] MEDS ORDERED: cefTRIAXone 1,000 MG in 0.9 % Sodium Chloride Mini Bag 100 ML IVPB ONE (23:06)
[2021-03-28] MEDS ORDERED: Azithromycin 500 MG in 0.9 % Sodium Chloride 250 ML IVPB ONE (23:06)
[2021-03-28 23:07] LABS: ABG Base Excess 4 mEq/L (-2 to 3); ABG HCO3 34 mEq/L (21-27); ABG Oxygen Saturation 99 % (95-98); ABG PCO2 66 mmHg (35-45); ABG PH 7.32 pH Units (7.32-7.45); ABG PO2 144 mmHg (85-104); ABG TCO2 36 mEq/L (20-26); Blood Gas Modality AVAPS
[2021-03-28] MEDS ORDERED: Ipratropium/Albuterol Neb 3 ML IH ONE (23:07)
[2021-03-28] MEDS ORDERED: Furosemide 40 MG/4 ML VIAL IVP ONE (23:16)
[2021-03-28 23:25] LABS: VBG HCO3 33 mEq/L (21-27); VBG PCO2 72 mmHg (41-51); VBG PH 7.27 pH Units (7.32-7.42); VBG PO2 36 mmHg (25-50)
[2021-03-28 23:32] LABS: INR 2.7; Prothrombin Time 30.4 Seconds (9.4-12.1)
[2021-03-28 23:34] LABS: Activated Partial Thrombo Time 34.9 Seconds (26.0-36.0)
[2021-03-28 23:51] LABS: Troponin I 0.34 ng/mL (< 0.04)
[2021-03-28 23:55] LABS: Alanine Aminotransferase 1738 Units/L (7-52); Albumin 3.7 g/dL (3.5-5.7); Alkaline Phosphatase 165 Units/L (34-104); Aspartate Amino Transferase 1723 Units/L (13-39); BUN/Creatinine Ratio 28 (6-26); Bilirubin,Direct 1.8 mg/dL (0.0-0.2); Bilirubin,Indirect 1.9 mg/dL (0.0-1.0); Bilirubin,Total 3.7 mg/dL (0.3-1.0); Blood Urea Nitrogen 44 mg/dL (6-20); C-Reactive Protein 173 mg/L (Less than 10); Calcium 8.7 mg/dL (8.6-10.3); Carbon Dioxide 33 mEq/L (23-29); Chloride 94 mEq/L (98-107); Creatine Kinase 368 Units/L (30-223); Ethanol < 10 mg/dL (Less than 10); Globulin 3.7 g/dL (2.4-3.5); Glucose 116 mg/dL (70-105); Magnesium 2.1 mg/dL (1.6-2.6); Osmolality,Calculated 292 (280-300); Potassium 5.3 mEq/L (3.5-5.1); Sodium 135 mEq/L (136-145); Thyroid Stimulating Hormone 1.661 mcIU/mL (0.340-5.600); Total Protein 7.4 g/dL (6.4-8.9); eGFR For African Americans 59 (> 60); eGFR For Non-African Americans 49 (> 60)
[2021-03-29 00:42] LABS: Eosinophils % 0.2 %; Mean Corpuscular HGB Conc 30.5 g/dL (31.6-35.5); Nucleated Red Blood Cells 0.6 /100 WBC (0)
[2021-03-29 00:44] LABS: Basophils # 0.1 K/mcL (0.0-0.2); Basophils % 0.3 %; Hemoglobin 18.1 g/dL (12.9-16.9); Immature Granulocytes % 0.6 % (0-4); Immature Platelets 8.2 % (1.1-6.1); Mean Corpuscular Hemoglobin 32.8 pg (28.0-33.3); Mean Corpuscular Volume 107.6 fL (83.0-100.0); Mean Platelet Volume 11.1 fL (9.4-12.4); Monocytes # 1.1 K/mcL (0.0-1.3); Monocytes % 5.8 %; Neutrophils # 16.5 K/mcL (1.6-8.9); Red Blood Count 5.52 M/mcL (4.19-5.50); Red Cell Distribution Width 15.1 % (11.5-14.5); Segmented Neutrophils % 90.1 %; White Blood Count 18.3 K/mcL (4.3-11.1)
[2021-03-29 00:49] LABS: Hematocrit 59.4 % (37.5-50.1); Lymphocytes # 0.6 K/mcL (0.6-4.6)
[2021-03-29 00:50] LABS: Platelet Count 87 K/mcL (140-400)
[2021-03-29 01:19] LABS: Adenovirus Not Detected (Not Detect); Bordetella Pertussis Not Detected (Not Detect); Chlamydophila pneumoniae Not Detected (Not Detect); Coronavirus 229E Not Detected (Not Detect); Coronavirus HKU1 Not Detected (Not Detect); Coronavirus NL63 Not Detected (Not Detect); Coronavirus OC43 Not Detected (Not Detect); Human Metapneumovirus Not Detected (Not Detect); Human Rhinovirus/Enterovirus Not Detected (Not Detect); Influenza A Subtype 2009 H1 Not Detected (Not Detect); Influenza B Not Detected (Not Detect); Mycoplasma pneumoniae Not Detected (Not Detect); Parainfluenza Virus 1 Not Detected (Not Detect); Parainfluenza Virus 2 Not Detected (Not Detect); Parainfluenza Virus 3 Not Detected (Not Detect); Parainfluenza Virus 4 Not Detected (Not Detect); Respiratory Syncytial Virus Not Detected (Not Detect); SARS-CoV-2 Not Detected (Not Detect)
[2021-03-29 01:44] LABS: Bilirubin,Urine Negative (Negative); Blood,Urine Small (Negative); Clarity,Urine Clear (Clear); Color,Urine Yellow (Yellow); Glucose,Urine (UA) Normal (Normal); Ketones,Urine Negative (Negative); Leukocyte Esterase,Urine Negative (Negative); Nitrite,Urine Negative (Negative); PH,Urine 5.5 pH Units (5.0-8.0); Protein,Urine 30 mg/dL (Neg-Trace); Specific Gravity,Urine 1.025 (1.010-1.025); Urobilinogen,Urine Normal (Normal)
[2021-03-29 01:47] LABS: Mucus,Urine Few per lpf (None-Few); RBC,Urine 0-3 per hpf (0-3); Squamous Epithelial Cell,Urine Few per hpf (None-Few); WBC,Urine 0-3 per hpf (0-3)
[2021-03-29 01:58] LABS: Amphetamine Screen,Urine Positive ng/mL (Cutoff=1000); Barbiturate Screen,Urine Negative ng/mL (Cutoff=200); Benzodiazepines Screen,Urine Negative ng/mL (Cutoff=200); Cannabinoid Screen,Urine Negative ng/mL (Cutoff = 50); Cocaine Screen,Urine Negative ng/mL (Cutoff= 300); Opiate Screen,Urine Negative ng/mL (Cutoff=300); Phencyclidine Screen,Urine Negative ng/mL (Cutoff=25)
[2021-03-29] MEDS ORDERED: MetroNIDAZOLE 500 MG/100 ML 500 MG/100 ML BAG IVPB ONE (02:24)
[2021-03-29] MEDS ORDERED: *HR* LORazepam 2 MG/ML VIAL IVP ONE ×3 (02:25→08:35)
[2021-03-29] MEDS ORDERED: Ondansetron 4 MG/2 ML VIAL IVP PRN (05:09)
[2021-03-29] MEDS ORDERED: Melatonin 3 MG TABLET PO PRN (05:09)
[2021-03-29] MEDS ORDERED: Naloxone 0.4 MG/ML INJ IVP PRN (05:09)
[2021-03-29 06:25] LABS: Nucleated Red Blood Cells 0.4 /100 WBC (0)
[2021-03-29 06:27] LABS: Basophils % 0.2 %; Eosinophils # 0.1 K/mcL (0.0-0.6); Eosinophils % 0.3 %; Hemoglobin 17.5 g/dL (12.9-16.9); Immature Granulocytes % 0.7 % (0-4); Immature Platelets 8.5 % (1.1-6.1); Lymphocytes # 0.5 K/mcL (0.6-4.6); Lymphocytes % 2.3 %; Mean Corpuscular HGB Conc 30.5 g/dL (31.6-35.5); Mean Corpuscular Hemoglobin 33.3 pg (28.0-33.3); Mean Corpuscular Volume 108.9 fL (83.0-100.0); Monocytes # 0.8 K/mcL (0.0-1.3); Monocytes % 4.1 %; Neutrophils # 17.9 K/mcL (1.6-8.9); Red Blood Count 5.26 M/mcL (4.19-5.50); Red Cell Distribution Width 15.2 % (11.5-14.5); Segmented Neutrophils % 92.4 %; White Blood Count 19.4 K/mcL (4.3-11.1)
[2021-03-29 06:29] LABS: Hematocrit 57.3 % (37.5-50.1); Platelet Count 81 K/mcL (140-400)
[2021-03-29 06:36] LABS: VBG HCO3 33 mEq/L (21-27); VBG PCO2 63 mmHg (41-51); VBG PH 7.33 pH Units (7.32-7.42); VBG PO2 72 mmHg (25-50)
[2021-03-29 06:42] LABS: INR 2.7; Prothrombin Time 29.4 Seconds (9.4-12.1)
[2021-03-29 06:45] LABS: Activated Partial Thrombo Time 31.6 Seconds (26.0-36.0)
[2021-03-29 06:49] LABS: Magnesium 2.1 mg/dL (1.6-2.6); Phosphorous 4.2 mg/dL (2.7-4.5); Troponin I 0.3 ng/mL (< 0.04)
[2021-03-29 07:02] LABS: Alanine Aminotransferase 1450 Units/L (7-52); Albumin 3.3 g/dL (3.5-5.7); Alkaline Phosphatase 156 Units/L (34-104); Aspartate Amino Transferase 1142 Units/L (13-39); BUN/Creatinine Ratio 30 (6-26); Bilirubin,Direct 1.7 mg/dL (0.0-0.2); Bilirubin,Indirect 1.3 mg/dL (0.0-1.0); Blood Urea Nitrogen 46 mg/dL (6-20); Calcium 8.2 mg/dL (8.6-10.3); Carbon Dioxide 35 mEq/L (23-29); Chloride 96 mEq/L (98-107); Globulin 3.3 g/dL (2.4-3.5); Glucose 169 mg/dL (70-105); Osmolality,Calculated 298 (280-300); Potassium 6.3 mEq/L (3.5-5.1); Sodium 136 mEq/L (136-145); Total Protein 6.6 g/dL (6.4-8.9); eGFR For African Americans > 60 (> 60); eGFR For Non-African Americans 50 (> 60)
[2021-03-29] MEDS ORDERED: Calcium Gluconate 1gm/50mL 1 GM/50 ML BAG IVPB ONE ×2 (07:16→22:58)
[2021-03-29] MEDS ORDERED: Albuterol 2.5 MG/3 ML NEBULIZER IH ONE (07:32)
[2021-03-29] MEDS ORDERED: D5% in Water 1,000 ML IVC PRN (07:33)
[2021-03-29] MEDS ORDERED: Insulin Human Regular 10 UNIT in 0.9 % Sodium Chloride 10 ML IV ONE (07:35)
[2021-03-29] MEDS ORDERED: Ketorolac 30 MG/ML VIAL IVP ONE (07:36)
[2021-03-29] MEDS ORDERED: *HR* Dextrose 50 % in Water (Syg) 50 ML SYRINGE IVP ONE (07:48)
[2021-03-29] MEDS ORDERED: Perflutren Lipid Microsphere 1.3 ML in 0.9 % Sodium Chloride 8.7 ML IVP PRN (07:58)
[2021-03-29] MEDS: Azithromycin 500 MG in D5% in Water 250 ML IVPB SCH (08:00)
[2021-03-29] MEDS: cefTRIAXone 1,000 MG in Water for inj. (sterile) 10 ML IVP SCH (08:01)
[2021-03-29] MEDS: *HR* Heparin 5,000 UNIT/ML VIAL SQ SCH ×2 (09:21→18:14)
[2021-03-29] MEDS: MetroNIDAZOLE 500 MG/100 ML 500 MG/100 ML BAG IVPB SCH ×2 (09:22→18:16)
[2021-03-29] MEDS ORDERED: Ipratropium/Albuterol Neb 3 ML IH SCH (10:00)
[2021-03-29] MEDS ORDERED: Ipratropium Neb 0.5 MG NEBULIZER IH SCH (10:00)
[2021-03-29] MEDS: Ipratropium Neb 0.5 MG NEBULIZER IH SCH ×3 (10:59→20:22)
[2021-03-29] MEDS: Levalbuterol Neb 1.25 MG/3 ML IH SCH ×3 (10:59→20:22)
[2021-03-29 11:28] LABS: BUN/Creatinine Ratio 33 (6-26); Blood Urea Nitrogen 49 mg/dL (6-20); Calcium 8.1 mg/dL (8.6-10.3); Carbon Dioxide 36 mEq/L (23-29); Chloride 97 mEq/L (98-107); Glucose 158 mg/dL (70-105); Osmolality,Calculated 300 (280-300); Potassium 5.9 mEq/L (3.5-5.1); Sodium 137 mEq/L (136-145); eGFR For African Americans > 60 (> 60); eGFR For Non-African Americans 50 (> 60)
[2021-03-29] MEDS: *HR* LORazepam 2 MG/ML VIAL IVP PRN ×2 (13:15→20:25)
[2021-03-29] MEDS ORDERED: Lactulose 200 GM, Sodium Chloride IRRigation 700 ML RC ONE (14:03)
[2021-03-29] MEDS ORDERED: *HR* Phytonadione 10 MG/ML AMPUL SQ ONE (14:04)
[2021-03-29] MEDS ORDERED: *HR* Etomidate 20 MG/10 ML AMPUL IVP ONE (15:23)
[2021-03-29] MEDS ORDERED: *HR* Midazolam HCl 2 MG/2 ML VIAL IVP ONE (15:23)
[2021-03-29] MEDS ORDERED: *HR* Midazolam HCl 5 MG/5 ML VIAL IVP ONE (15:23)
[2021-03-29] MEDS ORDERED: *HR* Rocuronium Bromide 50 MG/5 ML VIAL IVP ONE (15:23)
[2021-03-29 22:24] LABS: ABG Base Excess 9 mEq/L (-2 to 3); ABG HCO3 44 mEq/L (21-27); ABG Oxygen Saturation 89 % (95-98); ABG PCO2 111 mmHg (35-45); ABG PH 7.21 pH Units (7.32-7.45); ABG PO2 75 mmHg (85-104); ABG TCO2 48 mEq/L (20-26)
[2021-03-29] MEDS ORDERED: Dexamethasone Sodium Phos/PF 10 MG/ML VIAL ONE (23:29)
[2021-03-29] MEDS: FentaNYL (PF) 1,000 MCG/100 ML IV.SOLN IVC SCH (23:34)
[2021-03-29] MEDS ORDERED: Artificial Tears SOLN 15 ML BOTTLE BOTH EYES PRN (23:55)
[2021-03-30] MEDS: Midazolam HCl 50 MG/100 ML IV.SOLN IVC SCH ×2 (00:44→23:03)
[2021-03-30] MEDS: Artificial Tears SOLN 15 ML BOTTLE BOTH EYES SCH ×7 (00:44→23:02)
[2021-03-30] MEDS: MetroNIDAZOLE 500 MG/100 ML 500 MG/100 ML BAG IVPB SCH ×4 (00:58→23:02)
[2021-03-30 00:59] LABS: ABG Base Excess 10 mEq/L (-2 to 3); ABG HCO3 47 mEq/L (21-27); ABG Oxygen Saturation 94 % (95-98); ABG PCO2 116 mmHg (35-45); ABG PH 7.21 pH Units (7.32-7.45); ABG PO2 94 mmHg (85-104); ABG TCO2 > 50 mEq/L (20-26); Blood Gas Modality ASSIST CONTROL; Blood Gas VT 500 cc
[2021-03-30 01:38] LABS: Basophils % 0.2 %; Immature Granulocytes % 0.7 % (0-4); Nucleated Red Blood Cells 0.6 /100 WBC (0); Red Blood Count 5.16 M/mcL (4.19-5.50)
[2021-03-30 01:40] LABS: Hemoglobin 17.1 g/dL (12.9-16.9); Immature Platelets 9.1 % (1.1-6.1); Lymphocytes # 0.3 K/mcL (0.6-4.6); Lymphocytes % 1.9 %; Mean Corpuscular HGB Conc 29.6 g/dL (31.6-35.5); Mean Corpuscular Hemoglobin 33.1 pg (28.0-33.3); Mean Platelet Volume 11.8 fL (9.4-12.4); Monocytes # 0.8 K/mcL (0.0-1.3); Monocytes % 4.3 %; Neutrophils # 16.5 K/mcL (1.6-8.9); Segmented Neutrophils % 92.9 %; White Blood Count 17.8 K/mcL (4.3-11.1)
[2021-03-30 01:44] LABS: Hematocrit 57.8 % (37.5-50.1); Platelet Count 58 K/mcL (140-400)
[2021-03-30 01:54] LABS: INR 2.4; Prothrombin Time 26.7 Seconds (9.4-12.1)
[2021-03-30 02:12] LABS: Alanine Aminotransferase 1060 Units/L (7-52); Alkaline Phosphatase 138 Units/L (34-104); Aspartate Amino Transferase 519 Units/L (13-39); BUN/Creatinine Ratio 35 (6-26); Bilirubin,Direct 1.5 mg/dL (0.0-0.2); Bilirubin,Total 2.5 mg/dL (0.3-1.0); Blood Urea Nitrogen 52 mg/dL (6-20); Calcium 8.6 mg/dL (8.6-10.3); Carbon Dioxide 37 mEq/L (23-29); Chloride 98 mEq/L (98-107); Creatine Kinase 782 Units/L (30-223); Globulin 2.9 g/dL (2.4-3.5); Glucose 151 mg/dL (70-105); Osmolality,Calculated 305 (280-300); Potassium 6.5 mEq/L (3.5-5.1); Sodium 139 mEq/L (136-145); Total Protein 5.9 g/dL (6.4-8.9); eGFR For African Americans > 60 (> 60); eGFR For Non-African Americans 50 (> 60)
[2021-03-30] MEDS ORDERED: Calcium Gluconate 1gm/50mL 1 GM/50 ML BAG IVPB PRN (02:15)
[2021-03-30] MEDS ORDERED: *HR* Dextrose 50 % in Water (Syg) 50 ML SYRINGE IVP ONE (02:17)
[2021-03-30] MEDS ORDERED: Albuterol Neb 7.5 MG, Sodium Chloride for inhalation 12 ML IH ONE (02:18)
[2021-03-30] MEDS ORDERED: Insulin Human Regular 10 UNIT in 0.9 % Sodium Chloride 10 ML IV ONE (02:30)
[2021-03-30] MEDS ORDERED: Albuterol 2.5 MG/3 ML NEBULIZER IH ONE (03:17)
[2021-03-30] MEDS ORDERED: Albuterol 2.5 MG/3 ML NEBULIZER ONE (03:19)
[2021-03-30] MEDS: Levalbuterol Neb 1.25 MG/3 ML IH SCH ×4 (03:21→21:36)
[2021-03-30] MEDS: Ipratropium Neb 0.5 MG NEBULIZER IH SCH ×4 (03:21→21:36)
[2021-03-30 04:04] LABS: ABG Base Excess 7 mEq/L (-2 to 3); ABG HCO3 34 mEq/L (21-27); ABG Oxygen Saturation 94 % (95-98); ABG PCO2 54 mmHg (35-45); ABG PH 7.41 pH Units (7.32-7.45); ABG PO2 74 mmHg (85-104); ABG TCO2 36 mEq/L (20-26); Blood Gas VT 500 cc
[2021-03-30] MEDS: *HR* Heparin 5,000 UNIT/ML VIAL SQ SCH ×2 (05:02→17:29)
[2021-03-30] MEDS: Pantoprazole 40 MG VIAL IVP SCH (05:02)
[2021-03-30] MEDS: FentaNYL (PF) 1,000 MCG/100 ML IV.SOLN IVC SCH ×3 (06:47→16:26)
[2021-03-30] MEDS ORDERED: Albumin 25% 25gram/100mL 25 GM/100 ML IV.SOLN IVPB ONE (06:53)
[2021-03-30] MEDS ORDERED: 0.9 % Sodium Chloride 1,000 ML IVC SCH (07:00)
[2021-03-30] MEDS ORDERED: D5% in Water 1,000 ML IVC PRN (07:30)
[2021-03-30] MEDS ORDERED: *HR* Dextrose 50 % in Water (Syg) 50 ML SYRINGE IVP PRN (07:30)
[2021-03-30] MEDS ORDERED: Dextrose Gel 15 GM/37.5 ML TUBE PO PRN ×2 (07:30)
[2021-03-30] MEDS: Chlorhexidine Rinse 15 ML MOUTHWASH MM SCH ×2 (08:44→20:28)
[2021-03-30] MEDS: cefTRIAXone 1,000 MG in Water for inj. (sterile) 10 ML IVP SCH (08:45)
[2021-03-30] MEDS: Azithromycin 500 MG in D5% in Water 250 ML IVPB SCH (08:46)
[2021-03-30] MEDS ORDERED: SODIUM ZIRCONIUM CYCLOSILICATE 5 GM POWD.PACK PO SCH ×2 (09:00→12:30)
[2021-03-30] MEDS: Insulin LISPRO 300 UNITS/3 ML VIAL SUBQ SCH ×3 (12:53→23:02)
[2021-03-30] MEDS: SODIUM ZIRCONIUM CYCLOSILICATE 5 GM POWD.PACK PO SCH ×2 (15:26→20:28)
[2021-03-30 16:06] LABS: Basophils % 0.1 %; Nucleated Red Blood Cells 0.6 /100 WBC (0); Red Cell Distribution Width 14.8 % (11.5-14.5)
[2021-03-30 16:08] LABS: Hematocrit 50.6 % (37.5-50.1); Hemoglobin 15.4 g/dL (12.9-16.9); Immature Granulocytes % 0.7 % (0-4); Immature Platelets 8.2 % (1.1-6.1); Lymphocytes # 0.6 K/mcL (0.6-4.6); Lymphocytes % 4.1 %; Mean Corpuscular HGB Conc 30.4 g/dL (31.6-35.5); Mean Corpuscular Hemoglobin 33.3 pg (28.0-33.3); Mean Corpuscular Volume 109.5 fL (83.0-100.0); Mean Platelet Volume 11.1 fL (9.4-12.4); Monocytes # 0.5 K/mcL (0.0-1.3); Monocytes % 3.6 %; Red Blood Count 4.62 M/mcL (4.19-5.50); Segmented Neutrophils % 91.5 %
[2021-03-30 16:09] LABS: VBG Ionized Calcium 1.08 mmol/L (1.15-1.35)
[2021-03-30 16:11] LABS: Neutrophils # 12.8 K/mcL (1.6-8.9); Platelet Count 52 K/mcL (140-400)
[2021-03-30 16:14] LABS: INR 2.2; Prothrombin Time 24.6 Seconds (9.4-12.1)
[2021-03-30 16:56] LABS: Calcium 8.5 mg/dL (8.6-10.3); Magnesium 2.4 mg/dL (1.6-2.6); Potassium 4.7 mEq/L (3.5-5.1)
[2021-03-30] MEDS: Famotidine 20 MG/2 ML VIAL IVP SCH (17:29)
[2021-03-31] MEDS: Artificial Tears SOLN 15 ML BOTTLE BOTH EYES SCH ×6 (03:23→23:10)
[2021-03-31] MEDS: Levalbuterol Neb 1.25 MG/3 ML IH SCH ×4 (03:33→21:45)
[2021-03-31] MEDS: Ipratropium Neb 0.5 MG NEBULIZER IH SCH ×4 (03:33→21:45)
[2021-03-31] MEDS: Famotidine 20 MG/2 ML VIAL IVP SCH ×2 (05:14→17:43)
[2021-03-31] MEDS: Pantoprazole 40 MG VIAL IVP SCH (05:14)
[2021-03-31] MEDS: *HR* Heparin 5,000 UNIT/ML VIAL SQ SCH (05:14)
[2021-03-31] MEDS: Insulin LISPRO 300 UNITS/3 ML VIAL SUBQ SCH ×4 (05:22→18:35)
[2021-03-31 05:25] LABS: ABG Base Excess 8 mEq/L (-2 to 3); ABG HCO3 33 mEq/L (21-27); ABG Oxygen Saturation 96 % (95-98); ABG PCO2 46 mmHg (35-45); ABG PH 7.46 pH Units (7.32-7.45); ABG PO2 77 mmHg (85-104); ABG TCO2 34 mEq/L (20-26); Blood Gas Modality AF; Blood Gas VT 500 cc
[2021-03-31] MEDS: Midazolam HCl 50 MG/100 ML IV.SOLN IVC SCH (06:35)
[2021-03-31] MEDS: cefTRIAXone 1,000 MG in Water for inj. (sterile) 10 ML IVP SCH (07:56)
[2021-03-31] MEDS: Chlorhexidine Rinse 15 ML MOUTHWASH MM SCH ×2 (07:56→19:31)
[2021-03-31] MEDS: Azithromycin 500 MG in D5% in Water 250 ML IVPB SCH (07:56)
[2021-03-31] MEDS: MetroNIDAZOLE 500 MG/100 ML 500 MG/100 ML BAG IVPB SCH (07:58)
[2021-03-31] MEDS: FentaNYL (PF) 1,000 MCG/100 ML IV.SOLN IVC SCH ×2 (08:00→20:04)
[2021-03-31 08:04] LABS: Basophils % 0.1 %; Hemoglobin 16.1 g/dL (12.9-16.9); Red Cell Distribution Width 15.8 % (11.5-14.5)
[2021-03-31 08:06] LABS: Hematocrit 51.5 % (37.5-50.1); Immature Granulocytes % 0.5 % (0-4); Immature Platelets 11.1 % (1.1-6.1); Lymphocytes # 0.4 K/mcL (0.6-4.6); Lymphocytes % 2.3 %; Mean Corpuscular HGB Conc 31.3 g/dL (31.6-35.5); Mean Corpuscular Hemoglobin 33.6 pg (28.0-33.3); Mean Corpuscular Volume 107.5 fL (83.0-100.0); Monocytes # 0.6 K/mcL (0.0-1.3); Monocytes % 3.4 %; Neutrophils # 15.3 K/mcL (1.6-8.9); Nucleated Red Blood Cells 0.4 /100 WBC (0); Red Blood Count 4.79 M/mcL (4.19-5.50); Segmented Neutrophils % 93.7 %; White Blood Count 16.3 K/mcL (4.3-11.1)
[2021-03-31 08:08] LABS: Platelet Count 61 K/mcL (140-400)
[2021-03-31 08:15] LABS: INR 1.9; Prothrombin Time 20.6 Seconds (9.4-12.1)
[2021-03-31 08:52] LABS: Albumin/Globulin Ratio 1.2 (1.1-2.2); Bilirubin,Total 1.5 mg/dL (0.3-1.0); Calcium 8.8 mg/dL (8.6-10.3); Globulin 2.6 g/dL (2.4-3.5); Potassium 4.6 mEq/L (3.5-5.1); Total Protein 5.6 g/dL (6.4-8.9)
[2021-03-31] MEDS: SODIUM ZIRCONIUM CYCLOSILICATE 5 GM POWD.PACK PO SCH ×3 (09:12→19:21)
[2021-03-31] MEDS: Vancomycin 2,000 MG/520 ML IV.SOLN IVPB SCH (09:13)
[2021-03-31] MEDS: Furosemide 40 MG/4 ML VIAL IVP SCH ×3 (09:45→19:32)
[2021-03-31] MEDS: Cefepime HCl 1,000 MG in Water for inj. (sterile) 10 ML IVP SCH ×2 (12:28→19:31)
[2021-03-31 16:15] LABS: Sodium, Urine 14.1 mEq/L
[2021-03-31] MEDS: *HR* Enoxaparin 40 MG/0.4 ML SYRINGE SQ SCH (17:43)
[2021-04-01] MEDS: Insulin LISPRO 300 UNITS/3 ML VIAL SUBQ SCH ×4 (00:05→17:35)
[2021-04-01] MEDS: Artificial Tears SOLN 15 ML BOTTLE BOTH EYES SCH ×6 (03:08→23:50)
[2021-04-01] MEDS ORDERED: Furosemide 40 MG/4 ML VIAL IVP ONE (03:10)
[2021-04-01] MEDS: Levalbuterol Neb 1.25 MG/3 ML IH SCH ×2 (03:22→07:29)
[2021-04-01] MEDS: Ipratropium Neb 0.5 MG NEBULIZER IH SCH ×2 (03:23→07:29)
[2021-04-01] MEDS: Cefepime HCl 1,000 MG in Water for inj. (sterile) 10 ML IVP SCH ×3 (03:41→20:27)
[2021-04-01 05:01] LABS: ABG Base Excess 5 mEq/L (-2 to 3); ABG HCO3 32 mEq/L (21-27); ABG Oxygen Saturation 88 % (95-98); ABG PCO2 54 mmHg (35-45); ABG PH 7.39 pH Units (7.32-7.45); ABG PO2 57 mmHg (85-104); ABG TCO2 34 mEq/L (20-26); Blood Gas Modality ASSIST CONTROL; Blood Gas VT 500 cc
[2021-04-01] MEDS: *HR* Enoxaparin 40 MG/0.4 ML SYRINGE SQ SCH ×2 (05:27→17:34)
[2021-04-01] MEDS: Famotidine 20 MG/2 ML VIAL IVP SCH ×2 (05:28→17:34)
[2021-04-01 05:49] LABS: Basophils % 0.1 %
[2021-04-01 05:51] LABS: Hematocrit 53.3 % (37.5-50.1); Hemoglobin 17.3 g/dL (12.9-16.9); Immature Granulocytes % 0.5 % (0-4); Immature Platelets 9.6 % (1.1-6.1); Lymphocytes # 0.2 K/mcL (0.6-4.6); Lymphocytes % 1.5 %; Mean Corpuscular HGB Conc 32.5 g/dL (31.6-35.5); Mean Corpuscular Hemoglobin 34.9 pg (28.0-33.3); Mean Corpuscular Volume 107.5 fL (83.0-100.0); Mean Platelet Volume 12.9 fL (9.4-12.4); Monocytes # 0.6 K/mcL (0.0-1.3); Nucleated Red Blood Cells 0.4 /100 WBC (0); Red Blood Count 4.96 M/mcL (4.19-5.50); Red Cell Distribution Width 16.1 % (11.5-14.5); Segmented Neutrophils % 93.9 %
[2021-04-01 05:53] LABS: Platelet Count 69 K/mcL (140-400)
[2021-04-01 05:57] LABS: INR 1.7; Prothrombin Time 18.9 Seconds (9.4-12.1)
[2021-04-01 07:00] LABS: Bilirubin,Total 1.8 mg/dL (0.3-1.0); Calcium 8.2 mg/dL (8.6-10.3); Globulin 2.9 g/dL (2.4-3.5); Potassium 4.9 mEq/L (3.5-5.1); Total Protein 5.9 g/dL (6.4-8.9)
[2021-04-01] MEDS: Azithromycin 500 MG in D5% in Water 250 ML IVPB SCH (08:06)
[2021-04-01] MEDS: Furosemide 40 MG/4 ML VIAL IVP SCH ×3 (08:06→20:27)
[2021-04-01] MEDS: Chlorhexidine Rinse 15 ML MOUTHWASH MM SCH ×2 (08:07→20:27)
[2021-04-01] MEDS: Vancomycin 2,000 MG/520 ML IV.SOLN IVPB SCH (08:08)
[2021-04-01] MEDS: Midazolam HCl 50 MG/100 ML IV.SOLN IVC SCH (08:09)
[2021-04-01] MEDS: Vancomycin 1,500 MG/265 ML IV.SOLN IVPB SCH (08:38)
[2021-04-01] MEDS: metOLazone 5 MG TABLET GTUBE SCH ×2 (08:55→20:37)
[2021-04-01] MEDS ORDERED: 0.9 % Sodium Chloride 250 ML IVC PRN (09:33)
[2021-04-01] MEDS ORDERED: 0.9 % Sodium Chloride 1,000 ML PRIME SCH (09:45)
[2021-04-01] MEDS: FentaNYL (PF) 1,000 MCG/100 ML IV.SOLN IVC SCH (10:00)
[2021-04-01] MEDS: Ipratropium/Albuterol Neb 3 ML IH SCH ×3 (11:40→21:38)
[2021-04-01] MEDS ORDERED: Heparin 1,000 UNITS/500 mL 500 ML ONE (12:43)
[2021-04-01] MEDS ORDERED: *HR* Heparin 5,000 UNIT/ML VIAL ONE (12:48)
[2021-04-01 14:08] LABS: Source of Body Fluid rt.lower lobe bal
[2021-04-01 17:05] LABS: Hepatitis B Surface Antibody < 3.10 mIU/mL
[2021-04-01 17:16] LABS: Hepatitis B Surface Antigen Nonreactive (Nonreactive)
[2021-04-01 17:29] LABS: Appearance of Body Fluid Cloudy (Clear)
[2021-04-01 17:30] LABS: Volume of Body Fluid 24 mL
[2021-04-02] MEDS: Insulin LISPRO 300 UNITS/3 ML VIAL SUBQ SCH ×5 (00:07→23:43)
[2021-04-02] MEDS: Ipratropium/Albuterol Neb 3 ML IH SCH ×4 (03:27→20:18)
[2021-04-02] MEDS: Artificial Tears SOLN 15 ML BOTTLE BOTH EYES SCH ×6 (04:03→23:43)
[2021-04-02 04:32] LABS: VBG Ionized Calcium 1.08 mmol/L (1.15-1.35)
[2021-04-02 04:43] LABS: ABG Base Excess 8 mEq/L (-2 to 3); ABG HCO3 40 mEq/L (21-27); ABG Oxygen Saturation 94 % (95-98); ABG PCO2 86 mmHg (35-45); ABG PH 7.28 pH Units (7.32-7.45); ABG PO2 85 mmHg (85-104); ABG TCO2 43 mEq/L (20-26); Blood Gas Modality AF; Blood Gas VT 500 cc
[2021-04-02 04:50] LABS: Basophils % 0.1 %; Lymphocytes % 1.4 %
[2021-04-02 04:53] LABS: Hemoglobin 17.2 g/dL (12.9-16.9); Immature Granulocytes % 0.7 % (0-4); Immature Platelets 10.9 % (1.1-6.1); Lymphocytes # 0.3 K/mcL (0.6-4.6); Mean Corpuscular HGB Conc 30.2 g/dL (31.6-35.5); Mean Corpuscular Hemoglobin 33.1 pg (28.0-33.3); Mean Corpuscular Volume 109.8 fL (83.0-100.0); Mean Platelet Volume 11.6 fL (9.4-12.4); Monocytes # 0.8 K/mcL (0.0-1.3); Monocytes % 3.9 %; Neutrophils # 18.2 K/mcL (1.6-8.9); Nucleated Red Blood Cells 0.2 /100 WBC (0); Red Blood Count 5.19 M/mcL (4.19-5.50); Segmented Neutrophils % 93.9 %; White Blood Count 19.4 K/mcL (4.3-11.1)
[2021-04-02 04:54] LABS: Albumin 3.1 g/dL (3.5-5.7); Calcium 8.5 mg/dL (8.6-10.3); Globulin 3.2 g/dL (2.4-3.5); Magnesium 2.8 mg/dL (1.6-2.6); Phosphorous 7.7 mg/dL (2.7-4.5); Potassium 5.6 mEq/L (3.5-5.1); Total Protein 6.3 g/dL (6.4-8.9)
[2021-04-02 05:04] LABS: Platelet Count 79 K/mcL (140-400)
[2021-04-02] MEDS: Cefepime HCl 1,000 MG in Water for inj. (sterile) 10 ML IVP SCH ×3 (05:21→20:00)
[2021-04-02] MEDS: Famotidine 20 MG/2 ML VIAL IVP SCH ×2 (05:22→17:16)
[2021-04-02] MEDS: *HR* Enoxaparin 40 MG/0.4 ML SYRINGE SQ SCH (05:23)
[2021-04-02] MEDS ORDERED: Calcium Gluconate 1gm/50mL 1 GM/50 ML BAG IVPB ONE (05:56)
[2021-04-02] MEDS ORDERED: Insulin Human Regular 10 UNIT in 0.9 % Sodium Chloride 10 ML IV ONE (05:56)
[2021-04-02] MEDS ORDERED: *HR* Dextrose 50 % in Water (Syg) 50 ML SYRINGE IVP ONE (05:57)
[2021-04-02] MEDS: Midazolam HCl 50 MG/100 ML IV.SOLN IVC SCH (07:02)
[2021-04-02] MEDS ORDERED: 0.9 % Sodium Chloride 250 ML IVC PRN (07:35)
[2021-04-02] MEDS: Azithromycin 500 MG in D5% in Water 250 ML IVPB SCH (08:27)
[2021-04-02] MEDS: Chlorhexidine Rinse 15 ML MOUTHWASH MM SCH ×2 (08:29→19:59)
[2021-04-02] MEDS: Furosemide 40 MG/4 ML VIAL IVP SCH ×3 (08:29→20:12)
[2021-04-02] MEDS: metOLazone 5 MG TABLET GTUBE SCH ×2 (08:33→20:00)
[2021-04-02] MEDS: FentaNYL (PF) 1,000 MCG/100 ML IV.SOLN IVC SCH ×3 (09:38→17:05)
[2021-04-02] MEDS: Vancomycin 1,250 MG/262.5 ML IV.SOLN IVPB SCH (10:12)
[2021-04-02] MEDS ORDERED: *HR* Heparin 5,000 UNIT/ML VIAL IVP PRN ×3 (12:23→19:45)
[2021-04-02] MEDS ORDERED: Heparin 25,000UNIT/250ML 1/2NS 25,000 UNIT/250 ML IV.SOLN IVC SCH (12:30)
[2021-04-02 12:46] LABS: CK-BB (CK isoenzymes) 0 % (0-0); CK-MB (CK isoenzymes) 0 % (0-4); CK-MM (CK-isoenzymes) 100 % (96-100)
[2021-04-02 13:31] LABS: CK Total (Ck Isoenzymes) 1115 U/L (20-200)
[2021-04-02] MEDS: Heparin 25,000 UNIT/250 ML 25,000 UNIT/250 ML IV.SOLN IVC SCH (14:13)
[2021-04-02 17:31] LABS: Hematocrit 55.8 % (37.5-50.1); Hemoglobin 16.8 g/dL (12.9-16.9); Mean Corpuscular HGB Conc 30.1 g/dL (31.6-35.5); Mean Corpuscular Hemoglobin 32.9 pg (28.0-33.3); Mean Corpuscular Volume 109.2 fL (83.0-100.0); Mean Platelet Volume 12.9 fL (9.4-12.4); Red Blood Count 5.11 M/mcL (4.19-5.50); Red Cell Distribution Width 15.6 % (11.5-14.5); White Blood Count 16.9 K/mcL (4.3-11.1)
[2021-04-02 18:03] LABS: Heparin anti-factor XA UFH 0.93 IU/mL (0.30-0.70)
[2021-04-02 18:04] LABS: INR 1.8; Prothrombin Time 19.7 Seconds (9.4-12.1)
[2021-04-02 18:06] LABS: Activated Partial Thrombo Time 49.8 Seconds (26.0-36.0)
[2021-04-02] MEDS ORDERED: Calcium Gluconate 1gm/50mL 1 GM/50 ML BAG IVPB PRN ×2 (19:45)
[2021-04-02] MEDS: Docusate Oral Soln 100 MG/10 ML UDC GTUBE SCH (20:01)
[2021-04-02 21:05] LABS: Heparin anti-factor XA UFH 0.7 IU/mL (0.30-0.70)
[2021-04-02 21:40] LABS: VBG Ionized Calcium 1.09 mmol/L (1.15-1.35)
[2021-04-02] MEDS: 0.9 % Sodium Chloride 1,000 ML PRIME SCH ×3 (21:41→21:58)
[2021-04-02] MEDS: SODIUM CITRATE 500 ML CRRT SCH (21:55)
[2021-04-02] MEDS: PrismaSATE BGK 4/2.5 5,000 ML CRRT SCH ×2 (21:55)
[2021-04-02] MEDS: Calcium Chloride 4,000 MG in 0.9 % Sodium Chloride 1,000 ML CRRT SCH (22:06)
[2021-04-02] MEDS ORDERED: 0.9 % Sodium Chloride 1,000 ML PRIME PRN (22:28)
[2021-04-03 00:31] LABS: Chol/HDL Ratio 6.4 (0-4.9)
[2021-04-03 00:55] LABS: VBG Ionized Calcium 1.02 mmol/L (1.15-1.35)
[2021-04-03] MEDS: PrismaSATE BGK 4/2.5 5,000 ML CRRT SCH ×11 (01:35→22:30)
[2021-04-03] MEDS: SODIUM CITRATE 500 ML CRRT SCH ×3 (02:21→15:44)
[2021-04-03 03:21] LABS: VBG Ionized Calcium 1.07 mmol/L (1.15-1.35)
[2021-04-03] MEDS: Artificial Tears SOLN 15 ML BOTTLE BOTH EYES SCH ×6 (03:42→23:19)
[2021-04-03] MEDS: FentaNYL (PF) 1,000 MCG/100 ML IV.SOLN IVC SCH ×2 (03:48→17:47)
[2021-04-03] MEDS: Cefepime HCl 1,000 MG in Water for inj. (sterile) 10 ML IVP SCH ×3 (03:48→21:40)
[2021-04-03] MEDS: Ipratropium/Albuterol Neb 3 ML IH SCH ×4 (03:52→20:10)
[2021-04-03 04:04] LABS: Basophils % 0.1 %; Immature Granulocytes % 0.7 % (0-4); Lymphocytes % 1.1 %; Mean Platelet Volume 12.8 fL (9.4-12.4); Nucleated Red Blood Cells 0.1 /100 WBC (0); Red Cell Distribution Width 15.8 % (11.5-14.5)
[2021-04-03 04:06] LABS: Hemoglobin 16.8 g/dL (12.9-16.9); Immature Platelets 13.4 % (1.1-6.1); Lymphocytes # 0.2 K/mcL (0.6-4.6); Mean Corpuscular HGB Conc 29.8 g/dL (31.6-35.5); Mean Corpuscular Hemoglobin 32.6 pg (28.0-33.3); Mean Corpuscular Volume 109.3 fL (83.0-100.0); Monocytes # 0.9 K/mcL (0.0-1.3); Monocytes % 4.2 %; Neutrophils # 20.1 K/mcL (1.6-8.9); Platelet Count 107 K/mcL (140-400); Red Blood Count 5.16 M/mcL (4.19-5.50); Segmented Neutrophils % 93.9 %; White Blood Count 21.4 K/mcL (4.3-11.1)
[2021-04-03 04:07] LABS: Hematocrit 56.4 % (37.5-50.1)
[2021-04-03 04:20] LABS: Calcium 8.7 mg/dL (8.6-10.3); Magnesium 2.6 mg/dL (1.6-2.6); Phosphorous 4.5 mg/dL (2.7-4.5); Potassium 5.4 mEq/L (3.5-5.1)
[2021-04-03 04:58] LABS: ABG Base Excess 3 mEq/L (-2 to 3); ABG HCO3 32 mEq/L (21-27); ABG Oxygen Saturation 90 % (95-98); ABG PCO2 62 mmHg (35-45); ABG PH 7.32 pH Units (7.32-7.45); ABG PO2 65 mmHg (85-104); ABG TCO2 34 mEq/L (20-26); Blood Gas VT 500 cc
[2021-04-03 05:18] LABS: VBG Ionized Calcium 1.06 mmol/L (1.15-1.35)
[2021-04-03] MEDS: Heparin 25,000 UNIT/250 ML 25,000 UNIT/250 ML IV.SOLN IVC SCH ×2 (05:23→20:50)
[2021-04-03] MEDS: Insulin LISPRO 300 UNITS/3 ML VIAL SUBQ SCH ×3 (05:57→17:41)
[2021-04-03] MEDS: Famotidine 20 MG/2 ML VIAL IVP SCH ×2 (06:00→17:38)
[2021-04-03] MEDS ORDERED: *HR* Metoprolol 5 MG/5 ML VIAL IVP PRN (06:25)
[2021-04-03] MEDS: Midazolam HCl 50 MG/100 ML IV.SOLN IVC SCH (08:00)
[2021-04-03 08:29] LABS: VBG Ionized Calcium 1.03 mmol/L (1.15-1.35)
[2021-04-03] MEDS: Chlorhexidine Rinse 15 ML MOUTHWASH MM SCH ×2 (08:51→21:38)
[2021-04-03] MEDS: Furosemide 40 MG/4 ML VIAL IVP SCH ×3 (08:51→21:47)
[2021-04-03] MEDS: metOLazone 5 MG TABLET GTUBE SCH ×2 (08:52→21:45)
[2021-04-03] MEDS: Docusate Oral Soln 100 MG/10 ML UDC GTUBE SCH ×2 (08:52→21:43)
[2021-04-03] MEDS: Vancomycin 1,250 MG/262.5 ML IV.SOLN IVPB SCH (10:14)
[2021-04-03 13:21] LABS: VBG Ionized Calcium 1.09 mmol/L (1.15-1.35)
[2021-04-03] MEDS: Calcium Chloride 4,000 MG in 0.9 % Sodium Chloride 1,000 ML CRRT SCH (16:20)
[2021-04-03 16:43] LABS: VBG Ionized Calcium 1.11 mmol/L (1.15-1.35)
[2021-04-03] MEDS: Nystatin SUSP 5 ML UD.LIQ PO SCH (21:44)
[2021-04-03 23:34] LABS: VBG Ionized Calcium 1.09 mmol/L (1.15-1.35)
[2021-04-04] MEDS: PrismaSATE BGK 4/2.5 5,000 ML CRRT SCH ×12 (00:05→22:50)
[2021-04-04] MEDS: SODIUM CITRATE 500 ML CRRT SCH ×4 (00:08→19:01)
[2021-04-04] MEDS: FentaNYL (PF) 1,000 MCG/100 ML IV.SOLN IVC SCH ×3 (00:09→19:14)
[2021-04-04] MEDS: Insulin LISPRO 300 UNITS/3 ML VIAL SUBQ SCH ×5 (00:13→23:53)
[2021-04-04 01:55] LABS: VBG Ionized Calcium 1.14 mmol/L (1.15-1.35)
[2021-04-04 03:50] LABS: Hemoglobin 17.5 g/dL (12.9-16.9); Mean Corpuscular Hemoglobin 33.3 pg (28.0-33.3); Nucleated Red Blood Cells 0.1 /100 WBC (0); Red Blood Count 5.26 M/mcL (4.19-5.50); Red Cell Distribution Width 15.9 % (11.5-14.5)
[2021-04-04 03:51] LABS: Mean Corpuscular HGB Conc 29.9 g/dL (31.6-35.5); Mean Corpuscular Volume 111.4 fL (83.0-100.0); Platelet Count 154 K/mcL (140-400)
[2021-04-04 03:58] LABS: Hematocrit 58.6 % (37.5-50.1); White Blood Count 30.6 K/mcL (4.3-11.1)
[2021-04-04] MEDS: Ipratropium/Albuterol Neb 3 ML IH SCH ×4 (03:58→21:59)
[2021-04-04 04:06] LABS: Calcium 9.4 mg/dL (8.6-10.3); Magnesium 2.6 mg/dL (1.6-2.6); Potassium 5.5 mEq/L (3.5-5.1)
[2021-04-04 04:16] LABS: Anisocytosis 1+ (Not Present); Lymphocytes # 3.7 K/mcL (0.6-4.6); Monocytes # 1.2 K/mcL (0.0-1.3); Neutrophils # 25.1 K/mcL (1.6-8.9); Platelet Estimate Normal (Normal)
[2021-04-04] MEDS: Artificial Tears SOLN 15 ML BOTTLE BOTH EYES SCH ×6 (04:30→23:52)
[2021-04-04] MEDS: Calcium Chloride 4,000 MG in 0.9 % Sodium Chloride 1,000 ML CRRT SCH ×2 (05:30→19:05)
[2021-04-04 05:32] LABS: ABG Base Excess -1 mEq/L (-2 to 3); ABG HCO3 30 mEq/L (21-27); ABG Oxygen Saturation 93 % (95-98); ABG PCO2 65 mmHg (35-45); ABG PH 7.26 pH Units (7.32-7.45); ABG PO2 78 mmHg (85-104); ABG TCO2 32 mEq/L (20-26); Blood Gas VT 500 cc
[2021-04-04] MEDS: Cefepime HCl 1,000 MG in Water for inj. (sterile) 10 ML IVP SCH ×3 (05:33→22:48)
[2021-04-04] MEDS: Famotidine 20 MG/2 ML VIAL IVP SCH ×2 (05:37→18:07)
[2021-04-04 07:48] LABS: VBG Ionized Calcium 1.14 mmol/L (1.15-1.35)
[2021-04-04] MEDS: Docusate Oral Soln 100 MG/10 ML UDC GTUBE SCH ×2 (07:53→22:12)
[2021-04-04] MEDS: Furosemide 40 MG/4 ML VIAL IVP SCH (07:54)
[2021-04-04] MEDS: Chlorhexidine Rinse 15 ML MOUTHWASH MM SCH ×2 (07:54→22:14)
[2021-04-04] MEDS: Nystatin SUSP 5 ML UD.LIQ PO SCH ×4 (07:54→22:14)
[2021-04-04] MEDS: metOLazone 5 MG TABLET GTUBE SCH (07:54)
[2021-04-04] MEDS ORDERED: Vancomycin 1,250 MG/262.5 ML IV.SOLN IVPB ONE (09:00)
[2021-04-04] MEDS: Vancomycin 1,500 MG/265 ML IV.SOLN IVPB SCH (09:16)
[2021-04-04 10:28] LABS: Complement C3 59 mg/dL (87-200)
[2021-04-04] MEDS: Heparin 25,000 UNIT/250 ML 25,000 UNIT/250 ML IV.SOLN IVC SCH (12:50)
[2021-04-04] MEDS: Norepinephrine 4 MG/254 ML IV.SOLN IVC SCH ×3 (13:25→23:25)
[2021-04-04 14:32] LABS: VBG Ionized Calcium 1.17 mmol/L (1.15-1.35)
[2021-04-04 16:20] LABS: VBG Ionized Calcium 1.18 mmol/L (1.15-1.35)
[2021-04-04 18:48] LABS: VBG Ionized Calcium 1.16 mmol/L (1.15-1.35)
[2021-04-04] MEDS: Midazolam HCl 50 MG/100 ML IV.SOLN IVC SCH (19:30)
[2021-04-04 20:03] LABS: VBG Ionized Calcium 1.19 mmol/L (1.15-1.35)
[2021-04-05 01:31] VITALS: O2SAT 90
[2021-04-05] MEDS: Norepinephrine 4 MG/254 ML IV.SOLN IVC SCH (02:05)
[2021-04-05 02:44] LABS: VBG Ionized Calcium 1.26 mmol/L (1.15-1.35)
[2021-04-05] MEDS ORDERED: Phenylephrine 10 MG in 0.9 % Sodium Chloride 250 ML IVC SCH (02:45)
[2021-04-05] MEDS ORDERED: Vasopressin 40 UNIT in D5% in Water 100 ML IVC SCH (02:45)
[2021-04-05 02:47] LABS: INR 2.6; Prothrombin Time 29.3 Seconds (9.4-12.1)
[2021-04-05 02:49] LABS: Heparin anti-factor XA UFH 1.67 IU/mL (0.30-0.70)
[2021-04-05 02:55] LABS: Albumin 3.2 g/dL (3.5-5.7); Bilirubin,Direct 5.8 mg/dL (0.0-0.2); Bilirubin,Indirect 4.3 mg/dL (0.0-1.0); Bilirubin,Total 10.1 mg/dL (0.3-1.0); Calcium 10.7 mg/dL (8.6-10.3); Globulin 3.2 g/dL (2.4-3.5); Magnesium 3.2 mg/dL (1.6-2.6); Potassium 7.8 mEq/L (3.5-5.1); Total Protein 6.4 g/dL (6.4-8.9)
[2021-04-05 02:56] LABS: VBG HCO3 21 mEq/L (21-27); VBG PCO2 76 mmHg (41-51); VBG PH 7.06 pH Units (7.32-7.42); VBG PO2 54 mmHg (25-50)
[2021-04-05 03:03] LABS: Basophils # 0.4 K/mcL (0.0-0.2); Eosinophils % 0.1 %; Lymphocytes # 2.4 K/mcL (0.6-4.6); Mean Corpuscular HGB Conc 27.6 g/dL (31.6-35.5); Mean Corpuscular Hemoglobin 33.3 pg (28.0-33.3); Mean Corpuscular Volume 120.7 fL (83.0-100.0); Mean Platelet Volume 14.2 fL (9.4-12.4); Monocytes # 1.9 K/mcL (0.0-1.3); Monocytes % 4.7 %; Nucleated Red Blood Cells 1.5 /100 WBC (0); Platelet Count 126 K/mcL (140-400); Red Blood Count 4.69 M/mcL (4.19-5.50); Red Cell Distribution Width 16.7 % (11.5-14.5); Segmented Neutrophils % 81.2 %
[2021-04-05 03:05] LABS: Hematocrit 56.6 % (37.5-50.1); Hemoglobin 15.6 g/dL (12.9-16.9); Neutrophils # 32.6 K/mcL (1.6-8.9); White Blood Count 40.1 K/mcL (4.3-11.1)
[2021-04-05 03:11] LABS: Macrocytosis Present (Not Present); Polychromasia 1+ (Not Present); Reactive Lymphocytes Present (Not Present)
[2021-04-05 03:12] LABS: Platelet Estimate Normal (Normal)
[2021-04-05] MEDS: Ipratropium/Albuterol Neb 3 ML IH SCH (03:13)
[2021-04-05] MEDS ORDERED: Calcium Gluconate 1gm/50mL 1 GM/50 ML BAG IVPB ONE (03:27)
[2021-04-05] MEDS ORDERED: EPINEPHrine 1 MG in D5% in Water 250 ML IVC SCH (03:30)
[2021-04-05] MEDS ORDERED: *HR* Dextrose 50 % in Water (Syg) 50 ML SYRINGE IVP ONE (03:42)
[2021-04-05] MEDS ORDERED: Insulin Human Regular 10 UNIT in 0.9 % Sodium Chloride 10 ML IV ONE (03:42)
[2021-04-05] MEDS ORDERED: Albuterol Neb 7.5 MG, Sodium Chloride for inhalation 12 ML IH ONE (03:43)
[2021-04-05] MEDS ORDERED: *HR* Amiodarone 450 MG/9 ML VIAL IVC ONE (03:59)
[2021-04-05] MEDS ORDERED: *HR* EPINEPHrine 1 MG/10 ML SYRINGE IVP ONE ×2 (03:59)
[2021-04-05] MEDS ORDERED: EPINEPHrine 1 MG/ML VIAL IV ONE (03:59)
[2021-04-05] MEDS ORDERED: *HR* Atropine Sulfate 1 MG/10 ML SYRINGE IV ONE (03:59)
[2021-04-05] MEDS ORDERED: *HR* Magnesium Sulfate 2 GM/50 ML PIGGYBACK IVPB ONE (03:59)
[2021-04-05 04:37] VITALS: TEMP 99.3
[2021-04-05 06:05] VITALS: BP 80/54; PULSE 66
[2021-04-08 07:36] LABS: ANA IgG by ELISA NONE DETECTED (None Detected); GBM IgG Multiplex Bead Assay 1 AU/mL (0-19); Glomerular Basement Memb IgG NEGATIVE (Negative)
[2021-04-08 10:09] LABS: APTT (LE Anticoag) 117 sec (32-48); Diluted Russell Viper Venom 44 sec (33-44); LE APTT D Heparin Neutralized 42 sec (32-48); LE Coag Reptilase Time 23.9 sec (<=21.9); PT (LE-Anticoag) 19.7 sec (12.0-15.5); Thrombin Time >150.0 sec (14.7-19.5)
== END 2021-04-05 04:00 | disposition expired | DRG 133 ==
LOC: 2NNU 22:50 → EMEROOARM 22:50 → SUATTDRO 03-29 03:05 → 2NNU 03-29 05:00 → ICNU 03-30 21:52
PROVIDERS: ADMIT Family Medicine; ATTEND Internal Medicine